=== PATIENT | male | born 1955 | race Caucasian/White ===

== ENCOUNTER 2024-04-04 07:54 | Outpatient (OUT) | payer MEDICARE, SELFPAY ==
[2024-04-04 09:22] LABS: Chol HDL Ratio 6.6; Cholesterol 211 mg/dL (<=200); HDL Cholesterol 32 mg/dL (40-60); Triglycerides 155 mg/dL (<=150)
== END 2024-04-04 07:55 | disposition home or self-care (01) ==
LOC: LAB 07:57
PROVIDERS: PCP Family Medicine; Visit Provider Internal Medicine Cardiovascular Disease
DX: I25.10 Atherosclerotic heart disease of native coronary artery without angina pectoris (principal); E78.2 Mixed hyperlipidemia
CPT/HCPCS: 36415; 80061

== ENCOUNTER 2025-04-07 07:59 | Outpatient (OUT) | payer MEDICARE, SELFPAY ==
--- OUTSIDE RECORDS SUMMARY | 2023-12-28 10:45 | XMS_ITS ---
Author Organization [facility] in [place] Address [address] [place] [address] Care Team Providers Care Logistics Planning Manager Name Role Phone Leopoldo Marinelli Primary Care Provider LEOPOLDO MARINELLILAS Unavailable [phone] Allergies Allergen (clinical drug ingredient) Drug/Non Drug Allergy documented on EMR Reaction Allergy Type Onset Date Status amoxicillin Amoxicillin anaphylaxis Drug Allergy A ctive REASON FOR VISIT plugged ears Medications Medication SIG (Take, Route, Frequency, Duration) Notes Start Date End Date Status predniSONE 20 MG 3 tablets Orally Onc e a day for 5 days 12/28/2023 Active Cetirizine HCl 10 MG 2 tablet Orally Onc e a day for 30 days 12/28/2023 Active Flonase Allergy Relief 50 MCG/ACT 1 spray in each nostril Nasally Once a day for 30 days Active Aspirin 81 81 MG 1 tablet Orally Once a day Active Metoprolol Tartrate 25 MG 1 tablet with food Orally Twice a day Active Social History Tobacco Use: Social History Observation Description Date Details (start date - stop date) Current Smoker 11/12/1967 - NA Tobacco Use/Smoking Question Answer Notes Patient is a current smoker When did you start smoking? 11/12/1967 How often do you smoke cigarettes? every day How many cigarettes a day do you smoke? 11-20 How soon after you wake up do you smoke your fir st cigarette? 6-30 minutes Are you interested in quitting? Not ready to rocky t Alcohol Screen (Audit-C) Question Answer Notes Did you have a drink containing alcohol in the p ast year? No Points 0 Interpretation Negative Vital Signs Weight 177.2 lbs 12/28/2023 Height 68 in 12/28/2023 Blood pressure systolic 122 mm Hg 12/28/19 24 Blood pressure diastolic 82 mm Hg 024 BMI 26.94 kg/m2 12/28/2023 Encounters Encounter Location Date Provider Diagnosis [facility] [address] [facility] [place] [address] 12/28/2023 SERGIO HOY Serous otitis media, unspecified chronicity, unspecified laterality H65.90 Assessments Encounter Date Diagnosis (ICD Code) Assessment Notes Treatment Notes Treatment Clinical Notes Section Notes 12/28/2023 Serous otitis media, unspecified chronicity, unspecified laterality (ICD-10 - H65.90) Plan Of Treatment Medication Medication Name Sig Start Date Stop Date Notes predniSONE 20 MG 3 tablets Orally Onc e a day for 5 days 12/28/2023 Cetirizine HCl 10 MG 2 tablet Orally Onc e a day for 30 days 12/28/2023 Flonase Allergy Relief 50 MCG/ACT 1 spray in each nostril Nasally Once a day for 30 days Progress Notes * Zacarias EVANS GDOB:07/1955 (68 yo M)Acc No.[id number]:12/28/2023 Progress Note Patient: Zacarias Chicas Provider: Yossi Marinelli M.D. :1955 A ge:68 Y S ex:Male Date:12/28/2023 Address:[address] [place], [place] [id number] Check In:02:36 PM ESTCheck O ut:03:11 PM EST Subjective: * Chief Complaints: * P lugged ears * HPI: G eneral: Dif hearing -0 just woke withit - R worse than left. * Active Problem List W54.0XXA Dog bite Modified On:11/28/2023W/U Status:confirmed * Medical History: * Surgical History: s tents 2021hernia surgery * Hospitalization/Major Diagno stic Procedure: s ee above * Family History: F ather: . M other: . B rother(s): . S ister(s): .?Daughter(s): alive. 2 daughter(s) - healthy. . * Social History: T obacco Use: T obacco Use/Smoking P roxie is a c urrent smoker W hen did you start smoking? 0 11/12/1967 H ow often do you smoke cigarettes? e very day H ow many cigarettes a day do you smoke? 1 1-20 H ow soon after you wake up do you smoke your first cigarette? 6 -30 minutes A re you interested in quitting? N ot ready to quit D rugs/Alcohol: A lcohol Screen (Audit-C) D id you have a drink containing alcohol in the past year? N o P oints 0 I nterpretation N egative * Medications: T akingAspirin 81(Aspirin) 81 MG Tablet Delayed Release 1 tablet Orally Once a dayMetoprolol Tartrate 25 MG Tablet 1 tablet with food Orally Twice a dayTaking Aspirin 81(Aspirin) 81 MG Tablet Delayed Release 1 tablet Orally Once a dayTaking Metoprolol Tartrate 25 MG Tablet 1 tablet with food Orally Twice a dayDiscontinuedCipro(Ciprofloxacin HCl) 500 MG Tablet 1 tablet Orally every 12 hrsDoxycycline Monohydrate 100 MG Capsule 1 capsule Orally BIDMedication List reviewed and reconciled with the patientDiscontinued Cipro(Ciprofloxacin HCl) 500 MG Tablet 1 tablet Orally every 12 hrsDiscontinued Doxycycline Monohydrate 100 MG Capsule 1 capsule Orally BIDMedication List reviewed and reconciled with the patient * Allergies: A moxicillin: anaphylaxis - Allergy - Criticality Highno[Allergies Verified] Objective: * Vitals: W t:177.2 lbs, Ht: 68 in, BP:122/82 mm Hg, BMI:26.94 Index, Ht-cm: 172.72 cm, Wt- k.38 kg. * Examination: A bdomen Exam:: M inimal wax in ears -. Assessment: * Assessment: 1. S erous otitis media, unspecified chronicity, unspecified laterality - H65.90 (Primary) Plan: * Treatment: * Procedure Codes: * Preventive Medicine: Screenings/Counseling: B [place] ACTION PLAN Above Normal BMI Follow-up D ietary management education, guidance, and counseling * * Sign off status: Completed Visit Status: C HK (Check Out) true * Provider: Yossi Marinelli M.D. Date: 0 12/28/2023 Generated for Mihir parker/Juan/Taraitting on: 0 04/07/2025 08:03 AM EDT History and Physical Notes * Examination Category Sub-Category Detail Notes Category Not es Abdomen Exam: Minimal wax in ears -
--- OUTSIDE RECORDS SUMMARY | 2025-04-02 10:42 | XMS_ITS ---
Author Name Auto Generated Organization [facility] Care Team Providers Care Production Mechanic Name Role Phone RENU MURPHY Attending Unavailable RENU MURPHY Referring Unavailable SERGIO MARINELLI Primary Care Unavailable PROBLEMS DATE TYPE CONDITION / CODE ATTENDING STATUS SUNIL RCE 04/02/2025 Admitting Diagnosis Bradycardia, unspecified / R00.1(ICD-10) [facility] 04/03/2024 Admitting Diagnosis Atherosclerotic heart disease of [place] coronary artery without angina pectoris / I25.10(ICD-10) [facility] 04/03/2024 Admitting Diagnosis Body mass index (BMI) 26.0-26.9, adult / Z68.26(ICD-10) [facility] 12/28/2023 Admitting Diagnosis Other specified health status / Z78.9(ICD-10) [facility] 12/28/2023 Admitting Diagnosis Old myocardial infarction / I25.2(ICD-10) [facility] 12/28/2023 Admitting Diagnosis Presence of coronary angioplasty implant and graft / Z95.5(ICD-10) [facility] 12/28/2023 Admitting Diagnosis Mixed hyperlipidemia / E78.2(ICD-10) [facility] 12/28/2023 Admitting Diagnosis Nicotine dependence, unspecified, uncomplicated / F17.200(ICD-10) [facility] 04/02/2025 Admitting Diagnosis Localized swelling, mass and lump, head / R22.0(ICD-10) [facility] PROCEDURES No Procedure Records Found RESULTS ALLERGIES DATE TYPE / CODE NAME / CODE REACTION SEVERITY SOURCE 12/28/2023 Drug Class/9741700 03(SNOMED CT) PENICILLINS Anaphylaxis [facility] 12/28/2023 DRUG INGREDI/45351 1003(SNOMED CT) ATORVASTATIN Nausea/vomit [facility] 12/28/2023 Drug Class/1556459 03(SNOMED CT) SNANORZ-NJA-FHF REDUCTASE INHIBITORS Nausea/vomit [facility] ENCOUNTERS ADMIT/DISCHARGE ACCOUNT NUMBER ADMITTING ENCOUNTER CLASS LOCATION SOURCE 04/02/2025/ 5 [id number] Ambulatory Building:[facility] [id number] Ambulatory PAYERS ENCOUNTER GUARANTOR PAYER SUBSCRIBER SOURCE 04/02/2025 NELI CLEMENTSOB: [place], [place] [address]Rct: () Primary Insurance:[employer]HEM MEDICAREPolicy Number: [id number] Date:2023-11-12 NELI CLEMENTSOB: [id number] [place], [place] [address]Iyb: () [facility]
--- OUTSIDE RECORDS SUMMARY | 2025-04-02 10:50 | XMS_ITS | Encounter Summary ---
Author Organization [facility] Address [address] [place] [address] Phone Care Team Providers Care Cementer Hand Name Role Phone Dario Barrientos MD Primary Care Provider [phone] Reason for Referral * Imaging (Routine) - Pending Review Specialty Diagnoses / Procedures Referred By Marilia dalton Referred To Contact Cardiology Diagnoses ASHD (arteriosclerotic heart disease) History of ST elevation myocardial infarction (STEMI) Status post insertion of drug eluting coronary artery stent Mass of left submandibular region Procedures Vascular US Carotid Artery Duplex Bilateral Jhony Whitlock DO [facility] [address], [address] [address] Phone: tel: fax: Referral ID Status Reason Start Date Expiration Date Visits Requested Visits Authorized [id number] Pending Review Perform Procedure 04/02/2025 04/02/2026 1 1 * Imaging (Routine) - Authorized Specialty Diagnoses / Procedures Referred By Marilia dalton Referred To Contact Radiology Diagnoses Mass of left submandibular region Procedures US neck Jhony Whitlock DO [facility] [address], [address] [address] Phone: tel: fax: Referral ID Status Reason Start Date Expiration Date Visits Requested Visits Authorized [id number] Authorized Perform Procedure 04/02/2025 04/02/2026 1 1 * Consultation (Routine) - Authorized Specialty Diagnoses / Procedures Referred By Marilia t Referred To Contact Cardiology Diagnoses ASHD (arteriosclerotic heart disease) Procedures Follow Up In Cardiology Kamlesh Jhony Librado, [facility] [address], [address] [address] Phone: tel: fax: Jhony Whitlock, [facility] [address], [address] [address] Phone: tel: fax: Referral ID Status Reason Start Date Expiration Date V isits Requested Visits Authorized [id number] Authorized 04/02/2025 04/02/2026 1 1 Reason for Visit * Reason Comments Follow-up 1yr Follow up for Co ronary Artery Disease * Consultation (Routine) - Authorized Specialty Diagnoses / Procedures Referred By Contac t Referred To Contact Cardiology Diagnoses ASHD (arteriosclerotic heart disease) Procedures Follow Up In Cardiology Kamlesh Jhony DO Libr[place] [address] [place] [address] [address], [address] [address] Phone: tel: fax: Jhony Whitlock, [address] [place] [address] [address], [address] [address] Phone: tel: fax: Referral ID Status Reason Start Date Expiration Date V isits Requested Visits Authorized [id number] Authorized 04/03/2024 04/03/2025 1 1 Encounter Details Date Type Department Care Team (Latest Contact Info) Description 04/02/2025 10:50 AM EDT Office Visit [facility] [address] [address] KamleshJhony Librado, [address] [place] [address] [address], [address] [address] ASHD (arteriosclerotic heart disease); History of ST elevation myocardial infarction (STEMI); Status post insertion of drug eluting coronary artery stent; Mixed hyperlipidemia; Statin intolerance; Bradycardia, unspecified; BMI 26.0-26.9,adult; Current smoker; Mass of left submandibular region Social History Tobacco Use Types Packs/Day Years Used Date Smoking Tobacco: Every Day Cigarettes Smokeless Tobacco: Never Tobacco Cessation:Ready to Q uit: No; Counseling Given: Yes Alcohol Use Standard Drinks/Week Comments Yes 0 (1 standard drink = 0.6 oz pur e alcohol) social Sex and Gender Information Value Date Recorded Sex Assigned at Not on file Legal Sex Male 2:33 PM EST Gender Identity Not on file Sexual Orientation Not on file COVID-19 Exposure Response Date Recorded In the last 10 days, have yo u been in contact with someone who was confirmed or suspected to have Coronavirus/COVID-19? No / Unsure 04/02/2025 10:41 AM EDT documented as of this encounter Last Filed Vital Signs Vital Sign Reading Time Taken Comments Blood Pressure 132/74 04/02/2025 11:35 AM EDT Pulse 48 04/02/2025 11:35 AM EDT Temperature - - Respiratory Rate - - Oxygen Saturation - - Inhaled Oxygen Concentration - - Weight 78 kg (172 lb) 04/02/2025 11:35 AM EDT Height 172.7 cm (5' 8 ) 04/02/2025 11:35 AM EDT Body Mass Index 26.15 04/02/2025 11:35 AM EDT documented in this encounter Patient Instructions * Patient Instructions* Elaina Lee LPN - 04/02/2025 10:50 AM EDT Please bring all medicines, vitamins, and herbal supplements with you when you come to the office. Prescriptions will not be filled unless you are compliant with your follow up appointments or have a follow up appointment scheduled as per instruction of your physician. Refills should be requested at the time of your visit. documented in this encounter Progress Notes * Jhony Whitlock DO - 04/02/2025 10:50 AM EDT Chief Complaint Patient presents with Follow-up 1yr Follow up for Coronary Artery Disease Subjective Zacarias Evans is a 70 y.o. male 70-year-old gentleman returns for annual follow-up and is doing well from a cardiovascular standpoint, he denies any cardiovascular events, angina, nitrate usage or hospitalizations. He still smoking2 packs a day we have taken 5 to 10 minutes to drug counselor him on smoking cessation and offered alternatives and pharmacologic interventions. On exam today, he has noted to have a left submandibular mass on palpation and I believe he may have a enlarged right thyroid lobe on my palpation and no obvious bruits on exam He denies any neurologic events or swallowing problems. He denies heart failure or angina He has a history of ASHD with [place] status post inferoposterior STEMI in November 2021 with primary revascularization of the circumflex. He has underlying hyperlipidemia, hypertension and tobacco use and he is intolerant to statins. He did not follow-up with lipid testing last year. Recommendations: Obtain ultrasound of the neck and carotid duplex; lipid panel, smoking cessation counseling, follow-up in 1 year, notify family physician of left submandibular neck mass Review of Systems All other systems reviewed and are negative. Vitals: 04/02/25 1135 BP: 132/74 BP Location: Right arm Patient Position: Sitting Pulse: (!) 48 Weight: 78 kg (172 lb) Height: 1.727 m (5' 8 ) Objective Physical Exam Constitutional: Appearance: Normal appearance. HENT: Nose: Nose normal. Neck: Vascular: No carotid bruit. Cardiovascular: Rate and Rhythm: Bradycardia present. Pulses: Normal pulses. Heart sounds: Normal heart sounds. Pulmonary: Effort: Pulmonary effort is normal. Abdominal: General: Bowel sounds are normal. Palpations: Abdomen is soft. Musculoskeletal: General: Normal range of motion. Cervical back: Normal range of motion. Right lower leg: No edema. Left lower leg: No edema. Skin: General: Skin is warm and dry. Neurological: General: No focal deficit present. Mental Status: He is alert. Psychiatric: Mood and Affect: Mood normal. Behavior: Behavior normal. Thought Content: Thought content normal. Judgment: Judgment normal. Allergies Penicillins, Atorvastatin, and Whpihnd-pvp-hrd reductase inhibitors Current Medications Current Outpatient Medications Medication Instructions aspirin 81 mg, oral, Daily fluticasone propionat,microniz (FLUTICASONE PROP, MICRO, BULK, MISC) 1 puff, As needed metoprolol tartrate (LOPRESSOR) 25 mg, oral, 2 times daily nitroglycerin (NITROSTAT) 0.4 mg, Every 5 min PRN Assessment/Plan 1. ASHD (arteriosclerotic heart disease) Follow Up In Cardiology 2. History of ST elevation myocardial infarction (STEMI) 3. Status post insertion of drug eluting coronary artery stent 4. Mixed hyperlipidemia 5. Statin intolerance 6. Bradycardia, unspecified 7. BMI 26.0-26.9,adult 8. Current smoker Scribe Attestation By signing my name below, Nati Sharmila Henok JOHN , Scribe attest that this documentation has been prepared under the direction and in the presence of Ramesh Whitlock DO. Provider Attestation - Scribe documentation All medical record entries made by the Scribe were at my direction and personally dictated by me. Ihave reviewed the chart and agree that the record accurately reflects my personal performance of the history, physical exam, discussion and plan. documented in this encounter Plan of Treatment Upcoming Encounters Date Type Department Care Team (Late st Contact Info) Description 03/31/2026 10:00 AM EDT Office Visit [facility] [address] [address] Jhony Whitlock DO [facility] [place], [place] [id number] Scheduled Orders Name Type Priority Associated Diagnoses Orde r Schedule Aspartate Aminotransferase Lab Routine Mixed hyperlipidemia Expected: 04/02/2025 (Approximate), Expires: 04/02/2026 Alanine Aminotransferase Lab Routine Mixed hyperlipidemia Expected: 04/02/2025 (Approximate), Expires: 04/02/2026 Lipid Panel Lab Routine Mixed hyperlipidemia Expected: 04/02/2025 (Approximate), Expires: 04/02/2026 Basic Metabolic Panel Lab Routine ASHD (arteriosclerotic heart disease) History of ST elevation myocardial infarction (STEMI) Bradycardia, unspecified Expected: 04/02/2025 (Approximate), Expires: 04/02/2026 US neck Imaging Routine Mass of left submandibular region Expected: 04/02/2025 (Approximate), Expires: 04/02/2026 Vascular US Carotid Artery Duplex Bilateral Vascular Ultrasound Routine ASHD (arteriosclerotic heart disease) History of ST elevation myocardial infarction (STEMI) Status post insertion of drug eluting coronary artery stent Mass of left submandibular region Expected: 04/02/2025 (Approximate), Expires: 04/02/2027 documented as of this encounter Visit Diagnoses Diagnosis ASHD (arteriosclerotic heart disease) Coronary atherosclerosis of unspecified type of vessel, [place] or graft History of ST elevation myocardial infarction (STEMI) Status post insertion of drug eluting coronary artery stent Mixed hyperlipidemia Statin intolerance Bradycardia, unspecified BMI 26.0-26.9,adult Current smoker Mass of left submandibular region documented in this encounter Additional Health Concerns Assessment Noted Time A fall risk assessment has been complete d for the patient 04/02/2025 11:35 AM EDT documented as of this encounter Care Teams Cementer Hand Relationship Specialty Start Date End Date Dario Barrientos MD [address] [place] [id number] PCP - General 12/14/21 documented as of this encounter
--- OUTSIDE RECORDS SUMMARY | 2025-04-03 07:30 | XMS_ITS ---
Author Organization [facility] in [place] Address [address] [place] [address] Care Team Providers Care Thermo Cementing Folder Operator Name Role Phone Gael Barrientos Primary Care Provider Allergies Allergen (clinical drug ingredient) Drug/Non Drug Allergy documented on EMR Reaction Allergy Type Onset Date Status amoxicillin Amoxicillin anaphylaxis Drug Allergy A ctive REASON FOR VISIT Presents to office with for Wellness, Seen Dr. Deng yesterday and told has a mass on left side of neck Medications Medication SIG (Take, Route, Frequency, Duration) Notes Start Date End Date Status Aspirin 81 81 MG 1 tablet Orally Once a day Active Metoprolol Succinate ER 25 MG 1 tablet Orally Once a day A ctive Social History Tobacco Use: Social History Observation [...] in quitting? Not ready to rocky t AUDIT-C (Standard) Question Answer Notes Did you have a drink contain ing alcohol in the past year? Yes How often did you have a dri nk containing alcohol in the past year? Never (0 point) How many drinks did you have on a typical day when you were drinking in the past year? 1 or 2 drinks (0 point) How often did you have six o r more drinks on one occasion in the past year? 2 to 4 times a month (2 points) Points 2 Interpretation Negative Problems Problem Type SNOMED Code ICD Code Onset Dates Problem Status W/U Status Risk Notes Problem Hypertension (80333700) Hypertension (I10) Active confirmed Problem CAD (coronary artery disease) (I25.10) Active confirmed Vital Signs Weight 172.4 lbs 04/03/2025 Height 68 in 04/03/2025 Blood pressure systolic 160 mm Hg 04/03/20 25 Blood pressure diastolic 72 mm Hg 025 BMI 26.21 kg/m2 04/03/2025 Procedures Procedure Date Ordered Date Performed Result Body Sit e VASC US CAROTID ARTERY DUPLEX BILATERAL 04/03/2025 N/A Encounters Encounter Location Date Provider Diagnosis [facility] [address] [place] [address] 04/03/2025 Gael Hoy Neck mass R22.1 ; Hypertension I10 and CAD (coronary artery disease) I25.10 Assessments Encounter Date Diagnosis (ICD Code) Assessment Notes Treatment Notes Treatment Clinical Notes Section Notes 04/03/2025 Neck mass (ICD-10 - R22.1) 04/03/2025 Hypertension (ICD-10 - I10) 04/03/2025 CAD (coronary artery disease) (ICD-10 - I25.10) Plan Of Treatment Pending Test Test Name Order Date HEMOGLOBIN A1C (GLYCO) 04/03/2025 LIPID PANEL (CHOL/TRIG/HDL/LDL) 04/03/20 25 THYROID PANEL (T4/TSH/FREE T3) PSA, SCREENING 04/03/2025 US soft tissue head and neck 04/03/2025 CT CHEST LOW DOSE (LDCT) 04/03/2025 VASC US CAROTID ARTERY DUPLEX BILATERAL 04/03/2025 CMP (COMP MET GRIFFITH) w/eGFR CKD-EPI 2024 CBC WITH DIFF 04/03/2025 Progress Notes * Zacarias EVANS GDOB:07/1955 (70 yo M)Acc No.[id number]:04/03/2025 UNLOCKED PROGRESS NOTE Progress Note Patient: Zacarias BLANKENSHIP Provider: Yossi Barrientos (SYBIL)MD :1955 A ge:70 Y S ex:Male Date:04/03/2025 Address:[address] [place] [address] [place], [id number] Check In:11:20 AM ESTCheck O ut:12:14 PM EST Subjective: * Chief Complaints: * 1 . Presents to office with for Wellness. 2. Seen Dr. Deng yesterday and told has a mass on left side of neck. * HPI: G eneral: Disucssed hypertensio neck mass. * ROS: E ENT: hearing changes d enies. v isual changes d enies.?non-healing mouth sores d enies. s wollen glands or neck lumps d enies. h oarseness d enies. s ore throat d enies. d ifficulty swallowing d enies. n ose bleeds d enies. n nazanin congestion d enies. e ar ache d enies. e ar discharge?denies. r inging in ears d enies. l ight sensitivity d enies. e ye pain d enies. b lurring d enies. e ye irritation d enies. d ouble vision d enies.?vision loss d enies. G eneral/Constitutional: Sweats: D enies. F atigue d enies. S leep problems d enies. A norexia d enies. M alaise d enies. W eight loss d enies.?Fatigue or Weakness d enies. F ever or Chills d enies. C ardiovascular: Shortness of Breath w/lying flat d enies. L ightheadedness/dizziness d enies. C hest tightness/ heavy pressure d enies. S welling of legs, ankles, or feet d enies. W aking up with shortness of breath d enies. C hest pain denies. P alpitations d enies. W eight gain d enies. R espiratory: Chronic or frequent cough d enies. C oughing up blood?denies. D ifficulty breathing d enies. P roductive cough d enies. S noring?denies. S hortness of breath that awakens from sleep (PND) d enies. C hest pain d enies. S putum production d enies. W heezing d enies. M usculoskeletal: Joint pain d enies. J oint Fluid d enies. B ack pain d enies. K nee pain d enies. N walter pain d enies. J oint Stiffness d enies. M uscle cramps d enies. W eakness of muscles d enies. A rthritis d enies. M uscle aches d enies. P ain in shoulder(s) d enies. S wollen joints d enies. * Medical History: M I, old. * Surgical History: s tents 2021, hernia surgery . * Hospitalization/Major Diagno stic Procedure: s ee above . * Family History: F ather: . M other: . B rother(s): . S ister(s): .?Daughter(s): alive. 2 daughter(s) - healthy. . * Social History: T obacco Use: T obacco Use/Smoking P atient is a c urrent smoker W hen did you start smoking? 0 11/12/1967 H ow often do you smoke cigarettes? e very day H ow many cigarettes a day do you smoke? 1 1-20 H ow soon after you wake up do you smoke your first cigarette? 6 -30 minutes A re you interested in quitting? N ot ready to quit D rug/Alcohol: A LUCIO-C (Standard) D id you have a drink containing alcohol in the past year? Y es H ow often did you have a drink containing alcohol in the past year? N ever (0 point) H ow many drinks did you have on a typical day when you were drinking in the past year? 1 or 2 drinks (0 point) H ow often did you have six or more drinks on one occasion in the past year? 2 to 4 times a month (2 points) P oints 2 I nterpretation N egative * Medications: T aking Aspirin 81(Aspirin) 81 MG Tablet Delayed Release 1 tablet Orally Once a day , Taking Metoprolol Succinate ER 25 MG Tablet Extended Release 24 Hour 1 tablet Orally Once a day , Discontinued Cetirizine HCl 10 MG Tablet 2 tablet Orally Once a day , Discontinued Flonase Allergy Relief(Fluticasone Propionate) 50 MCG/ACT Suspension 1 spray in each nostril Nasally Once a day , Discontinued Metoprolol Tartrate 25 MG Tablet 1 tablet with food Orally Twice a day , Discontinued predniSONE 20 MG Tablet 3 tablets Orally Once a day , Medication List reviewed and reconciled with the patient * Allergies: A moxicillin: anaphylaxis - Allergy - Criticality High. Objective: * Vitals: W t:172.4lbs, Ht: 68 in, BP:160/72mm Hg, BMI:26.21Index, Ht-cm: 172.72 cm, Wt-k.2 kg. * Examination: P hysical Exam: GENERAL: w ell developed, well nourished, in no acute distress. HEAD: n ormocephalic/atraumatic. EYES: p upils equal, round and reactive to light, conjunctivae and sclerae normal. EARS: n o deformity or lesion of external ear, canals and TM appear normal bilaterally, TM's intact, not inflamed with normal light reflex, hearing grossly normal to conversational speech. NOSE: n o deformity, discharge, inflammation, or lesions.? MOUTH: m ucous membranes moist, normal oropharynx and posterior pharynx without lesions or exudates, tongue normal, dentition normal. NECK: n walter supple, no masses or palpable cervical nodes, trachea midline, thyroid without nodules, masses, tenderness, or enlargement. CHEST: n o chest wall deformity, no chest wall tenderness.? LUNGS: n ormal respiratory effort and clear to auscultation, no wheezes, rales, or rhonchi, good air exchange. CARDIO: r egular rate and rhythm, normal S1 and S2, nor murmur, rub, or gallop. PULSES: n ormal capillary refill. ABDOMEN: s oft, non-distended, non-tender, no masses. MUSCULOSKELETAL: n o deformity or scoliosis noted, normal range of motion, joints normal, no erythema, edema, effusion, or ecchymosis. EXTREMITY: n o clubbing, cyanosis, edema, or deformity with normal ROM in both upper and lower bilateral extremities. NEUROLOGIC: g rossly normal. SKIN: n o rashes, ulcerations, or suspicious lesions. LYMPH NODES: n o cervical adenopathy, nodes normal. MENTAL STATUS: a lert and oriented x3, normal mood and affect. Assessment: * Assessment: 1. N walter mass - R22.1 (Primary) 2 . H ypertension - I10 3 .?CAD (coronary artery disease) - I25.10 Plan: * Treatment: ?Imaging: CT CHEST LOW DOSE (LDCT)* Neclk mass and smoker ?Procedure: VASC US CAROTID ARTERY DUPLEX BILATERAL* copy to dr deng 2.?Hypertension?LAB: HEMOGLOBIN A1C (GLYCO) ?LAB: LIPID PANEL (CHOL/TRIG/HDL/LDL) ?LAB: THYROID PANEL (T4/TSH/FREE T3) ?LAB: PSA, SCREENING ?LAB: CMP (COMP MET GRIFFITH) w/eGFR CKD-EPI ?LAB: CBC WITH DIFF3.?CAD (coronary artery disease)?LAB: HEMOGLOBIN A1C (GLYCO) ?LAB: LIPID PANEL (CHOL/TRIG/HDL/LDL) ?LAB: THYROID PANEL (T4/TSH/FREE T3) ?LAB: PSA, SCREENING ?LAB: CMP (COMP MET GRIFFITH) w/eGFR CKD-EPI ?LAB: CBC WITH DIFF * Preventive Medicine: Screenings/Counseling: B NM ACTION PLAN Above Normal BMI Follow-up D ietary management education, guidance, and counseling See treatment section of progress note for complete details of management plan. F ALL RISK SCREENING Fall Risk Assessment: N o falls in the past year * * Electronic signature of Gael Barrientos MD, [id number] on 04/07/2025 at 08:03 AM EDT Sign off status: Pending Visit Status: C HK (Check Out) * Provider: Yossi Barrientos (TTC)MD Date: 0 04/03/2025 Generated for Printi ng/Faxing/eTransmitting on: 0 04/07/2025 08:03 AM EDT History and Physical Notes * HPI (History of Present Illness) Category Sub-Category Detail Notes Category Not es General Disucssed hypertensio neck mass Examination Category Sub-Category Detail Notes Category Not es Physical Exam GENERAL: well developed, well nourished, in no acute distress HEAD: normocephalic/atraum atic EYES: pupils equal, round and reactive to light, conjunctivae and sclerae normal EARS: no deformity or lesi on of external ear, canals and TM appear normal bilaterally, TM's intact, not inflamed with normal light reflex, hearing grossly normal to conversational speech NOSE: no deformity, discha rge, inflammation, or lesions MOUTH: mucous membranes nick st, normal oropharynx and posterior pharynx without lesions or exudates, tongue normal, dentition normal NECK: neck supple, no mass es or palpable cervical nodes, trachea midline, thyroid without nodules, masses, tenderness, or enlargement CHEST: no chest wall deform ity, no chest wall tenderness LUNGS: normal respiratory e ffort and clear to auscultation, no wheezes, rales, or rhonchi, good air exchange CARDIO: regular rate and rhy thm, normal S1 and S2, nor murmur, rub, or gallop PULSES: normal capillary ref ill ABDOMEN: soft, non-distended, non-tender, no masses RECTAL: MUSCULOSKELETAL: no deformity or scol iosis noted, normal range of motion, joints normal, no erythema, edema, effusion, or ecchymosis EXTREMITY: no clubbing, cyanosi s, edema, or deformity with normal ROM in both upper and lower bilateral extremities NEUROLOGIC: grossly normal SKIN: no rashes, ulceratio ns, or suspicious lesions LYMPH NODES: no cervical adenopat hy, nodes normal MENTAL STATUS: alert and oriented x 3, normal mood and affect
--- OUTSIDE RECORDS SUMMARY | 2025-04-07 08:03 | XMS_ITS | Patient Health Record ---
Author Organization [facility] [place] Address [address] [place] [address] Care Team Providers Care Numerical Control Programmer Name Role Phone Gael Barrientos Primary Care Provider Allergies Allergen (clinical drug ingredient) Drug/Non Drug Allergy documented on EMR Reaction Allergy Type Onset Date Status amoxicillin Amoxicillin anaphylaxis Drug Allergy A ctive Reason For Referral No Information Medications Medication SIG (Take, Route, Frequency, Duration) [...] ast year? No Points 0 Interpretation Negative AUDIT-C (Standard) Question Answer Notes Did you [...] Status W/U Status Risk Notes Problem Hypertension (45666554) Hypertension (I10) Active confirmed Problem Coronary artery disease (81121894) CAD (coronary artery disease) (I25.10) Active confirmed Problem Dog bite (W54.0XXA) Active confirmed Problem Tobacco use and exposure (827902063) Current tobacco use (Z72.0) Active confirmed Vital Signs Blood pressure diastolic 72 mm Hg 04/03/2025 Height 68 in 04/03/2025 Blood pressure systolic 160 mm Hg 04/03/2025 Weight 172.4 lbs 04/03/2025 BMI 26.21 kg/m2 04/03/2025 Procedures Procedure Date Ordered Date Performed Result Body Sit e VASC US CAROTID ARTERY DUPLEX BILATERAL 04/03/2025 N/A Encounters Encounter Location Date Provider Diagnosis [facility] ([place], [place] Medicine [address] [place] [address] 04/03/2025 Gael Hoy Neck mass R22.1 ; Hypertension I10 and CAD (coronary artery disease) I25.10 Assessments Encounter Date Diagnosis (ICD Code) Assessment Notes Treatment Notes Treatment Clinical Notes Section Notes 04/03/2025 Hypertension (ICD-10 - I10) 04/03/2025 Neck mass (ICD-10 - R22.1) 04/03/2025 CAD (coronary artery disease) (ICD-10 - [...] w/eGFR CKD-EPI 2024 CBC WITH DIFF 04/03/2025 Insurance Providers Payer Name Payer Address Payer Phone Subscriber Number Group Number Insured Name Patient Relationship to Insured Coverage Start Date Coverage End Date [employer] ADV PLAN [address] [place] [address] [id number] Zacarias Cordero Self - patient is the insured 4 Medical (General) History Medical History History ICD Code RI, old I25.2 Surgical History Surgery Date(Month/Year) stents 2021 hernia surgery Hospitalization History Reason Date(Month/Year) see above
--- OUTSIDE RECORDS SUMMARY | 2025-04-07 08:03 | XMS_ITS | Clinical Summary ---
Author Organization [facility] Address [address] [place] [address] Phone Care Team Providers Care High School Math Teacher Name Role Phone Dario Barrientos MD Primary Care Provider [phone] Allergies Active Allergy Reactions Criticality Noted Date Comments Atorvastatin Nausea/vomiting Medium 12/28/2023 Penicillins Anaphylaxis High 12/28/2023 Uctfyfg-Feq-Ren Reductase Inhibitors Nausea/vomiting Mediu m 12/28/2023 Medications nitroglycerin (Nitrostat) 0.[address] 1 tablet (0.4 mg) under the tongue every 5 minutes if needed. Active fluticasone propionat,micron iz (FLUTICASONE PROP, MICRO, BULK, MISC) 1 puff if needed. Active aspirin 81 mg EC tabletIndication s:History of ST elevation myocardial infarction (STEMI) TAKE 1 TABLET BY MOUTH EVERY DAY 90 tablet 3 4 Active metoprolol succinate XL (Toprol-XL) 25 mg 24 hr tabletIndication s:History of ST elevation myocardial infarction (STEMI),Bradycar rodolfo, unspecified Take 1 tablet (25 mg) by mouth once daily. Do not crush or chew. 90 tablet 3 5 04/02/20 26 Active aspirin 81 mg chewable tablet Chew 1 tablet (81 mg) once daily. 04/02/20 25 Discontinu ed(Duplica te order) cetirizine (ZyrTEC) 10 mg capsule Take 1 capsule (10 mg) by mouth 2 times a day. 04/02/20 25 Discontinu ed(Therapy completed) metoprolol tartrate (Lopressor) 25 mg tabletIndication s:ASHD (arterioscleroti c heart disease),Status post insertion of drug eluting coronary artery stent Take 1 tablet (25 mg) by mouth 2 times a day. 180 tablet 3 4 04/02/20 25 Discontinu ed(Therapy completed) Active Problems Problem Noted Date Diagnosed Date Bradycardia, unspecified 04/02/2025 BMI 26.0-26.9,adult 04/03/2024 ASHD (arteriosclerotic heart disease) 12/28/[address] elevation myocardial infarction (S ISIDRO) 12/28/2023 Mixed hyperlipidemia 12/28/2023 Status post insertion of drug eluting coronary a rtery stent 12/28/2023 Current smoker 12/28/2023 Statin intolerance 12/28/2023 Encounters Date Type Department Care Team Description 04/02/2025 10:50 AM EDT Office Visit [facility] [address] [address] Jhony Whitlock DO ASHD (arteriosclerotic heart disease); History of ST elevation myocardial infarction (STEMI); Status post insertion of drug eluting coronary artery stent; Mixed hyperlipidemia; Statin intolerance; Bradycardia, unspecified; BMI 26.0-26.9,adult; Current smoker; Mass of left submandibular region 04/02/2025 Travel from Last 3 Months Family History Medical History Relation Name Comments malignant neoplasm Father malignant neoplasm Mother Relation Name Status Comments Father Mother Social History Tobacco Use Types Packs/Day Years [...] No / Unsure 04/02/2025 10:41 AM EDT Last Filed Vital Signs Vital Sign Reading [...] Mass Index 26.15 04/02/2025 11:35 AM EDT Plan of Treatment Upcoming Encounters Date Type Department Care Team (Late st Contact Info) Description 03/31/2026 10:00 AM EDT Office Visit [facility] [address] [facility] [address] [place] [address] Jhony Whitlock, [address] [facility] [address] [place] [address] Health Maintenance Due Date Last Done Comments CT Colonography 1955 Colonoscopy 1955 Colorectal Cancer Screening 1955 FIT-DNA (Cologuard) 1955 FIT 1955 Lipid Panel 1955 Medicare Annual Wellness Vis it (AWV) 1955 Sigmoidoscopy 1955 Diabetes Screening 1974 Hepatitis C Screening 1974 DTaP/Tdap/Td Vaccines (1 - Tdap) 1978 Zoster Vaccines (1 of 2) 2006 RSV High Risk: (Elderly (60+ ) or Population) (1 - Risk 60-74 years 1-dose series) 2016 Abdominal Aortic Aneurysm (A AA) Screening 2021 Pneumococcal Vaccine (2 of 2 - PCV) 09/03/2021 09/03/2020 COVID-19 Vaccine (1 - 2023-2 5 season) 2024 Influenza Vaccine (Season Ended) 2025 HIB Vaccines Aged Out No longer eligi ble based on patient's age to complete this topic HPV Vaccines Aged Out No longer eligi ble based on patient's age to complete this topic Hepatitis A Vaccines Aged Out No long er eligible based on patient's age to complete this topic Hepatitis B Vaccines Aged Out No long er eligible based on patient's age to complete this topic IPV Vaccines Aged Out No longer eligi ble based on patient's age to complete this topic Meningococcal Vaccine Aged Out No eder nguyễn eligible based on patient's age to complete this topic Rotavirus Vaccines Aged Out No longer eligible based on patient's age to complete this topic Insurance [employer]M MEDICARE ADVANTAGE AN[employer]M MED[employer]ARE ADVANTAGE Care Teams High School Math Teacher Relationship Specialty Start Date End Date Dario Barrientos MD [address] [id number] PCP - General 12/14/21
--- OUTSIDE RECORDS SUMMARY | 2025-04-07 08:04 | XMS_ITS | Encounter Summary ---
Author Organization [facility] Address [address] [place] [address] Phone Care Team Providers Care Director Of Labor Relations Name Role Phone Dario Barrientos MD Primary Care Provider [phone] Encounter Details Date Type Department Care Team (Latest Contact Info) Description 04/02/2025 Travel Social History Tobacco Use Types Packs/Day Years Used Date Smoking Tobacco: Every Day Cigarettes Smokeless Tobacco: Never Alcohol Use Standard Drinks/Week Comments Yes 0 [...] AM EDT documented as of this encounter Plan of Treatment Upcoming Encounters Date Type Department Care Team (Late st Contact Info) Description 03/31/2026 10:00 AM EDT Office Visit [facility] [address] [facility] [address] [place] [address] Jhony Whitlock DO [address] [facility] [address] [place] [address] documented as of this encounter Visit Diagnoses Not on filedocumented in this encounter Additional Health Concerns Assessment Noted Time A fall risk assessment has been complete d for the patient 04/02/2025 11:35 AM EDT documented as of this encounter Care Teams Director Of Labor Relations Relationship Specialty Start Date End Date Dario Barrientos MD [address] [place] [address] PCP - General 12/14/21 documented as of this encounter
[2025-04-07 08:35] LABS: Basophils Absolute Auto 0.1 10^3/uL (0.0-0.1); Basophils Percent Auto 0.5 % (0.2-2.0); Eosinophils Absolute Auto 0.1 10^3/uL (0.0-0.7); Eosinophils Percent Auto 1.3 % (0.9-7.0); Hematocrit 44.4 % (42.0-54.0); Hemoglobin 14.9 g/dL (14.0-18.0); Immature Granulocytes Abs Auto 0.05 10^3/uL (0.00-0.03); Immature Granulocytes Pct Auto 0.5 % (0.0-0.5); Lymphocytes Absolute Auto 2.2 10^3/uL (1.2-3.8); Lymphocytes Percent Auto 22.1 % (20.5-60.0); Mean Corpuscular HGB Conc 33.6 g/dL (29.9-35.2); Mean Corpuscular Hemoglobin 29.5 pg (25.9-34.0); Mean Corpuscular Volume 87.9 fL (80.0-94.0); Mean Platelet Volume 9.6 fL (9.5-13.5); Monocytes Absolute Auto 0.9 10^3/uL (0.3-0.8); Neutrophils Absolute Auto 6.6 10^3/uL (1.4-6.5); Neutrophils Percent Auto 66.6 % (43.0-75.0); Platelet Count 204 10^3/uL (150-450); Red Blood Count 5.05 10^6/uL (4.70-6.10); Red Cell Distribution Width 13.8 % (11.0-15.0); White Blood Count 9.8 10^3/uL (4.0-11.0)
[2025-04-07 09:07] LABS: Estimated Average Glucose 128 mg/dL; Glycohemoglobin A1C 6.1 % (4.5-6.2)
[2025-04-07 09:27] LABS: Alanine Aminotransferase 21 U/L (16-63); Albumin Globulin Ratio 0.9; Albumin Level 3.6 g/dL (3.4-5.0); Alkaline Phosphatase 80 U/L (46-116); Anion Gap 13.6; Aspartate Amino Transferase 14 U/L (15-37); BUN Creatinine Ratio 20.6; Bilirubin Total 0.6 mg/dL (0.2-1.0); Carbon Dioxide 28.6 mmol/L (21.0-32.0); Chloride 103 mmol/L (98-107); Chol HDL Ratio 5.6; Cholesterol 207 mg/dL (<=200); Estimated GFR (African America >60 (>=60 mL/min/1.73m^2); Estimated GFR (Non-African Ame >60 (>=60 mL/min/1.73m^2); Globulin 3.8 g/dL; Glucose 106 mg/dL (74-106); HDL Cholesterol 37 mg/dL (40-60); Potassium 4.2 mmol/L (3.5-5.1); Sodium 141 mmol/L (136-145); Thyroid Stimulating Hormone 1.046 uIU/mL (0.358-3.740); Total Protein 7.4 g/dL (6.4-8.2); Triglycerides 149 mg/dL (<=150); VLDL CHOLESTEROL 29.8 mg/dL
[2025-04-07 10:12] LABS: Prostate Specific Antigen Scrn 1.11 ng/mL (<=4.00)
== END 2025-04-07 08:00 | disposition home or self-care (01) ==
LOC: LAB 08:02
PROVIDERS: PCP Family Medicine; Visit Provider Family Medicine
DX: R22.1 Localized swelling, mass and lump, neck (principal); I10 Essential (primary) hypertension; I25.10 Atherosclerotic heart disease of native coronary artery without angina pectoris; E78.5 Hyperlipidemia, unspecified; R73.09 Other abnormal glucose; E03.9 Hypothyroidism, unspecified; Z12.5 Encounter for screening for malignant neoplasm of prostate; D50.9 Iron deficiency anemia, unspecified
CPT/HCPCS: 36415; 80053; 80061; 83036; 84436; 84443; 84481; 85025; G0103

== ENCOUNTER 2025-04-10 09:55 | Outpatient (OUT) | payer MEDICARE, SELFPAY ==
--- NOTE | 2025-04-10 10:00 | CT_ITS ---
The [address] [address] Patient Name: NELI CEDILLO MRN: [id number] date: 1955 Sex: M Assigned Patient Location: CT Current Patient Location: LAB Accession/Order Number: [id number] Exam Date: 04/10/2025 10:47 Report Date: 04/10/2025 10:57 At the request of: SERGIO MARINLELI MD Procedure: CT lung screening low-dose LOW-DOSE SCREENING CHEST CT WITHOUT CONTRAST CLINICAL DATA: Current smoker with 60 pack year history of tobacco use COMPARISON: None Spiral axial unenhanced low-dose images were obtained through the chest. Images were reviewed using both narrow and wide window settings. This CT exam was performed using one or more following dose reduction techniques: Automated exposure control, adjustment of the mA and/or kV according to patient size, or use of iterative reconstruction technique. The heart is within normal limits for size. No pericardial effusion is seen. Coronary artery disease is visualized. There is no aortic aneurysm. There is minor plaque at the aortic arch and descending aorta. There are small scattered mediastinal lymph nodes. Benign-appearing axillary lymph nodes are seen. There is minor gynecomastia. There are tiny endplate spurs. There is minor scarring at the lung apices. There are some airspace lucencies and a few subpleural blebs. There is linear atelectasis and/or scarring of the lower lobes. No additional consolidation, pleural effusion or pneumothorax is identified. There is a 5 mm groundglass nodular density within the right lower lobe (axial image 111). No other nodularity is seen. Limited cuts through the upper abdomen show no contributory findings. CT/CT lung screening low-dose IMPRESSION: OBSTRUCTIVE LUNG DISEASE WITH MINOR SCARRING AND POSSIBLE ATELECTASIS. TINY RIGHT LOWER LOBE NODULE. Lung RADS category 2 - benign Twelve-month low-dose CT follow-up suggested Impression dictated by: Samantha Fontana M.D. 04/10/2025 10:57 AM Dictation Location: [place] [address] Electronically authenticated by: [id number] Date: 04/10/2025 10:57
--- OUTSIDE RECORDS SUMMARY | 2025-04-10 10:11 | XMS_ITS | CCD ---
Author Organization [facility] Care Team Providers Care Lab[address] Name Role Phone Sergio Barrientos Unavailable Unavailable Unavailable Kamlesh, Dr. Renu Choi Attending Unava ilable Sergio Barrientos Primary Care Unavailable Kamlesh, Dr. Renu Choi Attending Unava ilable Sergio Barrientos Primary Care Unavailable Kamlesh, Dr. Renu Choi Attending Unava ilable Sergio Barrientos Primary Care Unavailable Sergio Barrientos Primary Care Unavailable Kamlesh, Dr. Renu Choi Referring Unava ROSA MARIA Witt Attending Unavailable Sergio Barrientos Primary Care Unavailable Kamlesh, Dr. Renu Choi Attending Unava isrrael Schmidt, [employer] Qamar Referring Unavailable Sergio Barrientos Primary Care Unavailable Kamlesh, Dr. Renu Choi Referring Unava Sergio Castellano Primary Care Unavailable Kamlesh, Dr. Renu Choi Attending Unava gurdeepable KAMLESH, DR RENU Pavon Admitting Unavailessence WHITLOCK, DR RENU Pavon Attending Unavailabl savage BARRIENTOS, DR HILL Primary Care Unavailable KAMLESH, DR RENU Pavon Consulting Unavailessence BARRIENTOS, DR HILL Primary Care Unavailable RANDALL COTTON Admitting Unavailable RANDALL COTTON Attending Unavailable DR VIRGINIA ALFARO V Consulting Unavailable RANDALL COTTON Consulting Unavailable SANDRA, DR COOK Admitting Unavailable SANDRA, DR COOK Attending Unavailable DR SERGIO BARRIENTOS Primary Care Unavailable SANDRA, DR COOK Consulting Unavailable DR SERGIO BARRIENTOS Admitting Unavailable ILIANA, DR HILL Attending Unavailable DR SERGIO BARRIENTOS Primary Care Unavailable DR SERGIO BARRIENTOS Consulting Unavailable QAMAR MURPHY Admitting Unavailable QAMAR MURPHY Attending Unavailable DR SERGIO BARRIENTOS Primary Care Unavailable QAMAR MURPHY Consulting Unavailable Sergio Barrientos Primary Care Unavailable Agustin Whitlock Attending Unavailable Agustin Whitlock Admitting Unavailable Sergio Barrientos MD Primary Care Provider RENU WHITLOCK Attending Unavailable RENU WHITLOCK Referring Unavailable SERGIO BARRIENTOS Primary Care Unavailable Allergies Allergy Classification Reported Allergen(s) Allergy Type Date of Onset Reaction(s) Facility (7 sources) atorvastatin; Translations: [atorvastatin] Drug Allergy 4 Nausea/vomiting [facility] (6 sources) Penicillins; Translations: [Penicillins] Allergy to drug (finding) 4 Anaphylaxis, Other Hospitals 3 Repository (4 sources) Hmg-Coa Reductase Inhibitors (Statins); Translations: [Statins] Allergy to drug (finding) Vomiting [facility] y 250 DO Work Phone: (1 source) Penicillins Drug allergy (disorder) 7 [facility] Repository (1 source) Penicillins Drug allergy (disorder) 2 [facility] Repository (2 sources) HMG-CoA reductase inhibitor; Translations: [RJMDYZA-NTE-OL A REDUCTASE INHIBITORS] Drug Intolerance 4 Nausea/vomiting [facility] Work Phone: (1 source) Penicillins Drug Intolerance 4 Anaphylaxis [facility] Work Phone: Medications Current Medications Medication Drug Class(es) Dates Sig (Normalized) Sig (Original) cetirizine hydrochloride 10 mg oral capsule (1 source) Histamine-1 Receptor Antagonist take 1 capsule by mouth twice daily cetirizine (ZyrTEC) 10 mg capsule Take 1 capsule (10 mg) by mouth 2 times a day. Active ezetimibe 10 mg oral tablet (1 source) Dietary Cholesterol Absorption Inhibitor End: 04-03-2024 take 1 tablet by mouth once daily ezetimibe (Zetia) 10 mg tablet Take 1 tablet (10 mg) by mouth once daily. 04/03/2024 Discontinued (Therapy completed) fluticasone propionat,microniz (FLUTICASONE PROP, MICRO, BULK, MISC) (1 source) fluticasone propionat,microniz (FLUTICASONE PROP, MICRO, BULK, MISC) 1 puff once daily. Active metoprolol tartrate 25 mg oral tablet (12 sources) beta-Adrenergic Paulina Start: 11-27-2022 End: 04-03-2025 take 1 tablet by mouth twice daily metoprolol tartrate (Lopressor) 25 mg tablet Indications: ASHD (arteriosclerotic heart disease) , Status post insertion of drug eluting coronary artery stent Take 1 tablet (25 mg) by mouth 2 times a day. 180 tablet 3 04/03/2024 04/03/2025 Active nitroglycerin 0.4 mg sublingual tablet (12 sources) Nitrate Vasodilator nitroglycerin (Nitrostat) 0.[address] 1 tablet (0.4 mg) under the tongue every 5 minutes if needed. Active Completed/Discontinued Medications Medication Drug Class(es) Dates Sig (Normalized) Sig (Original) aspirin 81 mg delayed release oral tablet (13 sources) Platelet Aggregation Inhibitor, Nonsteroidal Anti-inflammatory Drug Start: 11-27-2022 take 1 tablet by mouth once daily Aspirin Low Dose 81 MG Oral Tablet Delayed Release TAKE 1 TABLET BY MOUTH EVERY DAY Quantity: 90 Refills: 3 Ordered: 30-Nov-2022 Renu Whitlock DO Start : 27-Nov-2022 Active aspirin 81 mg ch ewable tablet Chew 1 tablet (81 mg) once daily. Active atorvastatin 80 mg oral tablet (6 sources) HMG-CoA Reductase Inhibitor take 1 tablet by mouth at bedtime Atorvastatin Calcium 80 MG Oral Tablet TAKE 1 TABLET AT BEDTIME. Quantity: 0 Refills: 0 Ordered: 08-Dec-2021 DO Active clopidogrel 75 mg oral tablet (4 sources) P2Y12 Platelet Inhibitor Start: 09-27-20 take 1 tablet by mouth once Clopidogrel Bisulfate 75 MG Oral Tablet On day one take 600mg then 75mg daily Quantity: 98 Refills: 3 Ordered: 27-Sep-2022 Renu Whitlock DO Start : 27-Sep-2022 Active stop Brilinta/ new start Commit LOZG (11 sources) Commit LOZG USE DIRECTED ON PACKAGE Quantity: 0 Refills: 0 Ordered: 08-Dec-2021 DO Active 1 ml evolocumab 140 mg/ml auto-injector (4 sources) PCSK9 Inhibitor Start: 09-27-20 inject 140 mg by subcutaneous injection every other week Repatha SureClick 140 MG/ML Subcutaneous Solution Auto-injector Inject 140mg/1 ml every two weeks Quantity: 6 Refills: 3 Ordered: 27-Sep-2022 Renu Whitlock DO Start : 27-Sep-2022 Active please start prior authorization process rosuvastatin calcium 5 mg oral tablet (5 sources) HMG-CoA Reductase Inhibitor Start: 03-22-20 take 1 tablet by mouth once daily Rosuvastatin Calcium 5 MG Oral Tablet TAKE 1 TABLET DAILY. Quantity: 90 Refills: 3 Ordered: 22-Mar-2022 Renu Whitlock DO Start : 22-Mar-2022 Active replaces Atorvastatin ticagrelor 90 mg oral tablet (7 sources) take 1 tablet by mouth twice daily Brilinta 90 MG Oral Tablet TAKE 1 TABLET TWICE DAILY. Quantity: 0 Refills: 0 Ordered: 08-Dec-2021 DO Active Problems Active Problems Problem Classification Problem Date Documented Date Episodic/Chronic Acute myocardial infarction (11 sources) Myocardial infarction; Translations: [Acute myocardial infarction of unspecified site, episode of care unspecified] Onset: 12-29-2021 Chronic Cardiac dysrhythmias (2 sources) Bradycardia, unspecified; Translations: [Bradycardia, unspecified] Onset: 04-02-2025 Episodic Chronic obstructive pulmonary disease and bronchiectasis (1 source) Chronic obstructive pulmonary disease, unspecified; Translations: [J44.9 - Chronic obstructive pulmonary disease, unspecified] Onset: 12-06-2021 Chronic Coronary atherosclerosis and other heart disease (20 sources) Coronary arteriosclerosis; Translations: [Coronary atherosclerosis of unspecified type of vessel, [place] or graft] Onset: 10-03-2022 Chronic Coronary atherosclerosis and other heart disease (2 sources) Presence of coronary angioplasty implant and graft; Translations: [Presence of coronary angioplasty implant and graft] Onset: 12-28-2023 Episodic Disorders of lipid metabolism (20 sources) Mixed hyperlipidemia; Translations: [Mixed hyperlipidemia] Onset: 01-02-2022 Chronic Other nutritional; endocrine; and metabolic disorders (13 sources) Overweight in adulthood with body mass index of 25 or more but less than 30; Translations: [Overweight] Onset: 04-03-2024 04-03-2024 Episodic Other nutritional; endocrine; and metabolic disorders (2 sources) Body mass index (BMI) 26.0-26.9, adult; Translations: [Body mass index (BMI) 26.0-26.9, adult] Onset: 04-03-2024 Episodic Other skin disorders (2 sources) Localized swelling, mass and lump, head; Translations: [Localized swelling, mass and lump, head] Onset: 04-02-2025 Episodic Residual codes; unclassified (9 sources) Other specified health status; Translations: [Statin intolerance] Onset: 10-09-2022 04-03-2024 Episodic Substance-related disorders (16 sources) Smoker; Translations: [Tobacco use disorder] Onset: 12-08-2021 04-03-2024 Chronic Comment on above: LESS THAN A PACK, [place] BY DAY; couple packs daily; Unclassified (1 source) CONTACT W/AND (SUSP) EXPOS COVID-19; Translations: [CONTACT W/AND (SUSP) EXPOS COVID-19] Onset: 12-08-2021 Unclassified (1 source) I21.19 - ST elevation (STEMI) myocardial infarction involving other coronary artery of inferior wall; Translations: [I21.19 - ST elevation (STEMI) myocardial infarction involving other coronary artery of inferior wall] Onset: 12-06-2021 Past or Other Problems Problem Classification Problem Date Documented Da te Episodic/Chronic Genitourinary symptoms and ill-defined conditions (1 source) Other abnormal findings in urine; Translations: [OTHER ABNORMAL FINDINGS IN URINE] Onset: 01-02-2022 Episodic Nonspecific chest pain (3 sources) Chest pain, unspecified; Translations: [CHEST PAIN UNSPECIFIED] Onset: 12-06-2021 Episodic Residual codes; unclassified (1 source) Tobacco use; Translations: [Z72.0 - Tobacco use] Onset: 12-06-2021 Episodic Unclassified (1 source) Onset: 04-03-2024 04-03-2024 Results Test Name Value Interpretation Reference Range Facility LIPID PROFILEon 10-03-2022 CHOL-HDL RATIO NORM SEE BELOW Normal [facility] Comment on above: Result Comment: 3.3 - 4.4 LOW RISK 4.4 - 7.1 AVERAGE RISK 7.1 - 11.0 MODERATE RISK >11.0 HIGH RISK Performed By: #### P T, PTT #### [facility] [address], [place] [address] Dr. Derrick Sauer Cholesterol [Mass/Vol] 191 mg/dL Normal <=200 [facility] Comment on above: Performed By: #### P T, PTT #### [facility] [address] [address] [address] Derrick Sauer Cholesterol in HDL [Mass/Vol] 32 mg/dL Critically low 40-60 [facility] Comment on above: Performed By: #### P T, PTT #### [facility] [address] [address] [address] Derrick Sauer Cholesterol in LDL [Mass/Vol] 118.6 mg/dL Normal [facility] Comment on above: Performed By: #### P T, PTT #### [facility] [address] [address] [address] Derrick Sauer Cholesterol.total/ Cholesterol in HDL [Mass ratio] 6.0 {ratio} Normal [facility] Comment on above: Performed By: #### P T, PTT #### [facility] [address] [address] [address] Derrick Sauer HDL NORMAL > or = 60 mg/dl - LO W CARDIOVASCULAR RISK <40 mg/dl - HIGH CARDIOVASCULAR RISK Normal [facility] Comment on above: Performed By: #### P T, PTT #### [facility] [address] [address] [address] Derrick Sauer LDL CALC NORMAL SEE BELOW Normal [facility] Comment on above: Result Comment: <100 mg/dl OPTIMAL 100 - 129 mg/dl NEAR OR ABOVE OPTIMAL 130 - 159 mg/dl BORDERLINE HIGH 160 - 189 mg/dl HIGH >190 mg/dl VERY HIGH Performed By: #### P T, PTT #### [facility] [address] [address] [address] Derrick Sauer Triglyceride [Mass/Vol] 202 mg/dL Critically high <=150 [facility] Comment on above: Performed By: #### P T, PTT #### [facility] [address] [address] [address] Derrick Sauer VLDL CALC 40.4 mg/dL Normal [facility] Comment on above: Performed By: #### P T, PTT #### [facility] [address] [address] [address] Derrick Sauer Office Visit (Cardiology)on 09-27-2022 Follow-up visit Diagnoses/Problems Assessed CAD (coronary artery disease) (414.00) (I25.10) Mixed hyperlipidemia (272.2) (E78.2) Status post insertion of drug eluting coronary artery stent (V45.82) (Z95.5) History of ST elevation myocardial infarction (STEMI) (412) (I25.2) Overweight with body mass index (BMI) of 27 to 27.9 in adult (278.02,V85.23) (E66.3,Z68.27) Current smoker (305.1) (F17.200) couple packs daily Statin intolerance (995.27) (Z78.9) Orders CAD (coronary artery disease), History of ST elevation myocardial infarction (STEMI), Mixed hyperlipidemia, Statin intolerance Start: Clopidogrel Bisulfate 75 MG Oral Tablet; On day one take 600mg then 75mg daily Lipid Panel; Status:Active - Retrospective Authorization; Requested for:27Sep2022; Start: Repatha SureClick 140 MG/ML Subcutaneous Solution Auto-injector; Inject 140mg/1 ml every two weeks SocHx: Current smoker Tobacco Use Screening; Status:Complete; Done: 27Sep2022 Unlinked Stop: Brilinta 90 MG Oral Tablet Patient Instructions Please bring all medicines, vitamins, and herbal supplements with you when you come to the office. Prescriptions will not be filled unless you are compliant with your follow up appointments or have a follow up appointment scheduled as per instruction of your physician. Refills should be requested at the time of your visit. Follow up in 6 months Chief Complaint ZACARIAS EVANS is being seen for a 6 month follow-up of. 67-year-old gentleman returns for follow-up and doing well he has no cardiovascular complaints or angina or nitrate usage or repeat hospitalizations. He sustained a inferoposterior CT in November 2021 with primary revascularization of the circumflex with normal left ventricular function. He is intolerant to statins and he stopped his low-dose rosuvastatin this past year. He continues smoking 1 to 2 packs cigarettes daily we have counseled him extensively for over 5 minutes today on smoking cessation. He has underlying accelerated hypertension but blood pressure came down very nicely to 138/64 on my exam Brilinta unfortunate is not affordable for him therefore we will switch out for Plavix, will also obtain another lipid panel off statins, consider PCSK29 inhibitor therapy in the future we will follow-up in 6 months Surgical History Problems History of Hernia repair Current Meds Medication NameInstruction Aspirin 81 MG Oral Tablet ChewableTake 1 tablet daily Brilinta 90 MG Oral TabletTAKE 1 TABLET TWICE DAILY. Commit LOZGUSE DIRECTED ON PACKAGE Metoprolol Tartrate 25 MG Oral TabletTAKE 1 TABLET TWICE DAILY. Nitroglycerin 0.4 MG Sub[address]ual Tablet SublingualPLACE 1 TABLET UNDER THE TONGUE EVERY 5 MINUTES UP TO 3 DOSES NEEDED FOR CHEST PAIN. Rosuvastatin Calcium 5 MG Oral TabletTAKE 1 TABLET DAILY. Allergies Medication Penicillins Adverse Reaction; Anaphylaxis;; Recorded By: Celi San; 03/22/2022 10:57:26 AM atorvastatin Allergy; Vomiting; Recorded By: Gabrielle Christian; 03/22/2022 11:20:57 AM Statins Adverse Reaction; Vomiting; Recorded By: April Servin; 09/27/2022 10:28:10 AM Social History Problems Current smoker (305.1) (F17.200) couple packs daily Daily caffeine consumption 2 cup daily No alcohol use No illicit drug use Review of Systems Constitutional: not feeling tired. Cardiovascular: no intermittent leg claudication and as noted in HPI. Respiratory: shortness of breath, but no cough. Gastrointestinal: no change in bowel habits and no blood in stools. Integumentary: no skin rashes. Neurological: no seizures and no frequent falls. All other systems have been reviewed and are negative for complaint. Vitals Vital Signs Recorded: 27Sep2022 10:04AM Heart Rate60, R Radial Dmqucujy491, RUE, Sitting Clxiuiyrb19, RUE, Sitting Height5 ft 8 in Fphssd967 lb 3.2 oz BMI Fohlsxqqqp91.25 kg/m2 BSA Calculated1.95 Tobacco Usea) Yes Patient encouraged to stop using tobacco productsYes Falls Screening (Age 18+)a) No falls within the last year Physical Exam Constitutional: alert and in no acute distress. Neck: neck is supple, symmetric, trachea midline, no masses and no thyromegaly . Pulmonary: no increased work of breathing or signs of respiratory distress and lungs clear to auscultation. Cardiovascular: carotid pulses 2+ bilaterally with no bruit , JVP was normal, no thrills , regular rhythm, normal S1 and S2, no murmurs , pedal pulses 2+ bilaterally and no edema . Abdomen: abdomen non-tender, no masses and no hepatomegaly . Skin: skin warm and dry, normal skin turgor . Psychiatric judgment and insight is normal and oriented to person, place and time . Signatures Electronically signed by : Renu Whitlock DO; Sep 27 2022 10:30AM EST (Author) Normal [employer] Tobacco Screening.on 022 Fall risk assessment a) No falls within the last year -[facility] 250 DO Work Phone: Tobacco use status [facility] a) Yes [facility] 250 DO Work Phone: Tobacco Screening. Yes [facility] 250 DO Work Phone: Office Visit (Cardiology)on 03-22-2022 Follow-up visit Diagnoses/Problems Assessed CAD (coronary artery disease) (414.00) (I25.10) STEMI (ST elevation myocardial infarction) (410.90) (I21.3) Status post insertion of drug eluting coronary artery stent (V45.82) (Z95.5) Mixed hyperlipidemia (272.2) (E78.2) Overweight with body mass index (BMI) of 26 to 26.9 in adult (278.02,V85.22) (E66.3,Z68.26) Current smoker (305.1) (F17.200) couple packs daily Orders CAD (coronary artery disease) Start: Rosuvastatin Calcium 5 MG Oral Tablet; TAKE 1 TABLET DAILY Renew: Aspirin 81 MG Oral Tablet Chewable; Take 1 tablet daily Overweight with body mass index (BMI) of 26 to 26.9 in adult Healthy Weight Tips; Status:Complete - Retrospective Authorization; Done: 22Mar2022 Some eating tips that can help you lose weight.; Status:Complete - Retrospective Authorization; Done: 22Mar2022 SocHx: Current smoker You need to stop smoking. Though it is not easy, more than half of all adult smokers have quit. We encourage you to write down all the reasons you should quit smoking and set a quit date for yourself. Ask us how we can help. You may also call 4-509-YGWPNOW for free resources and assistance.; Status:Complete - Retrospective Authorization; Done: 22Mar2022 Tobacco Use Screening; Status:Complete; Done: 22Mar2022 Patient Instructions By signing my name below, I, Gabrielle Christian LPN,Ashlyibsavage, attest that this documentation has been prepared under the direction and in the presence of Dr. Renu Whitlock DO. Please bring all medicines, vitamins, and herbal supplements with you when you come to the office. Prescriptions will not be filled unless you are compliant with your follow up appointments or have a follow up appointment scheduled as per instruction of your physician. Refills should be requested at the time of your visit. Follow up in [6 ] months Chief Complaint ZACARIAS EVANS is being seen for a 3 month follow-up of. Patient is a 67-year-old gentleman returns for 4-month follow-up following recent inferolateral STEMI treated with primary PCI of the circumflex with preserved left ventricular function and no other significant angiographic disease. His original CT was November 2021. His only symptoms currently are routine morning associated nausea with medications. He believes it is related to his aspirin. He has ongoing tobacco use and presumed COPD. He has been smoking for over 50 years. He is intolerant to statins at least high-dose statins and took himself off atorvastatin Recommendations: Trial of low-dose rosuvastatin 5 mg daily, switch his aspirin to evening dose see if that makes a difference, will follow-up in 6 months, smoking cessation counseling for 3 minutes today. Surgical History Problems History of Hernia repair Current Meds Medication NameInstruction Aspirin 81 MG Oral Tablet ChewableTake 1 tablet daily Brilinta 90 MG Oral TabletTAKE 1 TABLET TWICE DAILY. Commit LOZGUSE DIRECTED ON PACKAGE Metoprolol Tartrate 25 MG Oral TabletTAKE 1 TABLET TWICE DAILY. Nitroglycerin 0.4 MG Sublingual Tablet SublingualPLACE 1 TABLET UNDER THE TONGUE EVERY 5 MINUTES UP TO 3 DOSES NEEDED FOR CHEST PAIN. Allergies Medication Penicillins Adverse Reaction; Anaphylaxis;; Recorded By: Celi San; 03/22/2022 10:57:26 AM atorvastatin Allergy; Vomiting; Recorded By: Gabrielle Christian; 03/22/2022 11:20:57 AM Social History Problems Current smoker (305.1) (F17.200) couple packs daily Daily caffeine consumption 2 cup daily No alcohol use No illicit drug use Review of Systems Constitutional: not feeling tired. Cardiovascular: no intermittent leg claudication and as noted in HPI. Respiratory: shortness of breath, but no cough. Gastrointestinal: no change in bowel habits and no blood in stools. Integumentary: no skin rashes. Neurological: dizziness, but no seizures and no frequent falls. All other systems have been reviewed and are negative for complaint. Vitals Vital Signs Recorded: 22Mar2022 11:03AMRecorded: 22Mar2022 10:58AM Gvoyovzb897, LUE, Gakgsfd381, RUE, Sitting Odlvtklgz16, LUE, Eramlnb90, RUE, Sitting Heart Rate54, R Radial Height5 ft 8 in Qizpsp134 lb BMI Iqnhfcptmb05.61 kg/m2 BSA Calculated1.93 Tobacco Usea) Yes Patient encouraged to stop using tobacco productsYes PHQ-2 #1. Over the last 2 weeks have you felt down, depressed or hopeless? (If yes, answer PHQ-9 below)No PHQ-2 #2. Over the last 2 weeks have you felt little interest or pleasure in doing things? (If yes, answer PHQ-9 below)No Fall Screeninga) No falls within the last year Physical Exam Constitutional: alert and in no acute distress. Neck: neck is supple, symmetric, trachea midline, no masses and no thyromegaly . Pulmonary: no increased work of breathing or signs of respiratory distress and lungs clear to auscultation. Cardiovascular: carotid pulses 2+ bilaterally with no bruit , JVP was normal, no thrills , regular rhythm, normal S1 and S2, no mur (more content not included)... Normal [employer] Tobacco Screening.on 022 Adult depression screening assessment No [facility] 250 DO Work Phone: Fall risk assessment a) No falls within the last year [facility] [employer] 250 DO Work Phone: Tobacco use status [facility] a) Yes [facility] [employer] DO Work Phone: Tobacco Screening. Yes [facility] 250 DO Work Phone: LIPID PROFILEon 02-13-2022 CHOL-HDL RATIO NORM SEE BELOW Normal [facility] Comment on above: Result Comment: 3.3 - 4.4 LOW RISK 4.4 - 7.1 AVERAGE RISK 7.1 - 11.0 MODERATE RISK >11.0 HIGH RISK Performed By: #### P T, PTT #### [facility] [address] [address] [address] Derrick Sauer Cholesterol [Mass/Vol] 195 mg/dL Normal <=200 [facility] Comment on above: Performed By: #### P T, PTT #### [facility] [address] [address] [address] Derrick Sauer Cholesterol in HDL [Mass/Vol] 28 mg/dL Critically low 40-60 [facility] Comment on above: Performed By: #### P T, PTT #### [facility] [address] [address] [address] Derrick Sauer Cholesterol in LDL [Mass/Vol] 121.6 mg/dL Normal [facility] Comment on above: Performed By: #### P T, PTT #### [facility] [address] [place] [address] Dr. Derrick Sauer Cholesterol.total/ Cholesterol in HDL [Mass ratio] 7.0 {ratio} Normal [facility] Comment on above: Performed By: #### P T, PTT #### [facility] [address] [address] [address] Derrick Sauer HDL NORMAL > or = 60 mg/dl - LO W CARDIOVASCULAR RISK <40 mg/dl - HIGH CARDIOVASCULAR RISK Normal [facility] Comment on above: Performed By: #### P T, PTT #### [facility] [address] [place] [address] Dr. Derrick Sauer LDL CALC NORMAL SEE BELOW Normal [facility] Comment on above: Result Comment: <100 mg/dl OPTIMAL 100 - 129 mg/dl NEAR OR ABOVE OPTIMAL 130 - 159 mg/dl BORDERLINE HIGH 160 - 189 mg/dl HIGH >190 mg/dl VERY HIGH Performed By: #### P T, PTT #### [facility] [address] [place] [address] Dr. Derrikc Sauer Triglyceride [Mass/Vol] 227 mg/dL Critically high <=150 [facility] Comment on above: Performed By: #### P T, PTT #### [facility] [address] [address] [address] Derrick Sauer VLDL CALC 45.4 mg/dL Normal [facility] Comment on above: Performed By: #### P T, PTT #### [facility] [address] [address] [address] Derrick Sauer SGOTon 02-13-2022 AST [Catalytic activity/Vol] 11 U/L Critically low 15-37 [facility] Comment on above: Performed By: #### P T, PTT #### [facility] [address] [address] [address] Derrick Sauer SGPTon 02-13-2022 ALT [Catalytic activity/Vol] 21 U/L Normal 16-63 [facility] Comment on above: Performed By: #### P T, PTT #### [facility] [address] [address] [address] Derrick Sauer Cardiac Stress Teston 2021 Cardiac Stress Test [address], [address] [address] Exercise Stress Test Patient Name: ZACARIAS EVANS Ordering Physician: Study Date: 01/11/2022 Reading Physician: [id number] Keenan Cyr MD MRN/PID: [id number] Supervising Physician: [id number] Cyr MD Accession/Order#: [id number] Referring Physician: [id number] SCHMIDT Date of : 1955 PCP: Gender: M Fellow: Height: 172.72 cm Nurse: Richa Gotti RN Weight: 80.29 kg [employer] Ax Developer: N/A BSA: 1.94 m2 Technologist: BMI: 26.91 kg/m2 Additional Staff: Age: 66 years cc report to: Study Type: Cardiac Stress Test Diagnosis/ICD: I21.3-ST elevation (STEMI) myocardial infarction of unspecified site; I25.10-Atherosclerotic heart disease Indication: ACS: STEMI Procedure/CPT: Stress Test Supervision-[id number] Falls Risk: Low: Patient has low risk for sustaining a fall; environmental safety interventions in place. Study Details: Correct procedure and correct patient verified verbally. Patient Performance: The peak heart rate achieved was 100 bpm, which was 65 % of the age predicted target heart rate of 154 bpm. The resting blood pressure was 136/70 mmHg with a heart rate of 63 bpm. The standing blood pressure was 160/80 mmHg with a heart rate of 73 bpm. The blood pressure response was hypertensive. The test was terminated due to: dyspnea and hypertension. Mild sinus tachycardia without ST-T changes. Double Product (HR x BP): 216. Baseline ECG: Resting ECG showed normal sinus rhythm. Normal sinus rhythm. Stress Stage Data: + +--+ ------+-------+ HR Sys BP Yoder BP + +--+ ------+-------+ Baseline Resting 63 136 70 + +--+ ------+-------+ Baseline Standing 73 160 80 + +--+ ------+-------+ Stage I 86 200 70 + +--+ ------+-------+ Stage II 86 216 78 + +--+ ------+-------+ Stage III 93 212 74 + +--+ ------+-------+ + +--+----- -+-------+ HR Sys BP Yoder BP + +--+----- -+-------+ Recovery I 90 214 76 + +--+----- -+-------+ Recovery II 76 192 76 + +--+----- -+-------+ Recovery III 73 172 80 + +--+----- -+-------+ Recovery IV 68 170 90 + +--+----- -+-------+ Recovery V 69 144 78 + +--+----- -+-------+ Summary: 1. Graded exercise stress test per the modified Rich protocol. 2. No provoked chest pain or arrhythmia. 3. Fair exercise tolerance. 4. Normal heart rate recovery phase. 5. Recommend referral to cardiac rehab. [id number] Keenan Cyr MD Electronically signed on 01/13/2022 at 3:33:20 PM Final Normal [facility] Cardiac Stress Test Please click on the link to view the study images [facility] Work Phone: Cardiac Stress Test -[facility] 250 DO Work Phone: AMYLASEon 12-29-2021 Amylase [Catalytic activity/Vol] 63 U/L Normal 31-110 [facility] Comment on above: Performed By: #### P T, PTT #### [facility] [address] [place] [address] Dr. Derrick Sauer CBC AUTO DIFFon 12-29-2021 BASO # 0.1 103/ul Normal 0.0-0.1 [facility] Comment on above: Performed By: #### P T, PTT #### [facility] [address] [place] [address] Dr. Derrick Sauer Basophils/100 WBC (Bld) 0.6 % Normal 0.2-2.0 [facility] Comment on above: Performed By: #### P T, PTT #### [facility] [address] [place] [address] Dr. Derrick Sauer EO # 0.2 103/ul Normal 0.0-0.7 [facility] Comment on above: Performed By: #### P T, PTT #### [facility] [address] [place] [address] Dr. Derrick Sauer Eosinophils/100 WBC (Bld) 1.4 % Normal 0.9-7.0 [facility] Comment on above: Performed By: #### P T, PTT #### [facility] [address] [place] [address] Dr. Derrick Sauer Erythrocyte distribution width (RBC) [Ratio] 13.2 % Normal 11.0-15.0 [facility] Comment on above: Performed By: #### P T, PTT #### [facility] [address] [place] [address] Dr. Derrick Sauer Hematocrit (Bld) [Volume fraction] 42.9 % Normal 42.0-54.0 [facility] Comment on above: Performed By: #### P T, PTT #### [facility] [address] [place] [address] Dr. Derrick Sauer Hemoglobin (Bld) [Mass/Vol] 14.0 g/dL Normal 14.0-18.0 [facility] Comment on above: Performed By: #### P T, PTT #### [facility] [address] [place] [address] Dr. Derrick Sauer IG # 0.11 10e3/ul Critically high 0.00-0.03 [facility] Comment on above: Performed By: #### P T, PTT #### [facility] [address] [place] [address] Dr. Derrick Sauer IG % 0.9 % Critically high 0.0-0.5 [facility] Comment on above: Performed By: #### P T, PTT #### [facility] [address] [place] [address] Dr. Derrick Sauer LYMPH # 2.3 103/ul Normal 1.2-3.8 [facility] Comment on above: Performed By: #### P T, PTT #### [facility] [address] [place] [address] Dr. Derrick Sauer Lymphocytes/100 WBC (Bld) 18.0 % Critically low 20.5-60.0 [facility] Comment on above: Performed By: #### P T, PTT #### [facility] [address] [place] [address] Dr. Derrick Sauer MANUAL DIFF REQ NO Normal [facility] Comment on above: Performed By: #### P T, PTT #### [facility] [address] [place] [address] Dr. Derrick Sauer MCH (RBC) [Entitic mass] 28.6 pg Normal 25.9-34.0 [facility] Comment on above: Performed By: #### P T, PTT #### [facility] [address] [place] [address] Dr. Derrick Sauer MCHC (RBC) [Mass/Vol] 32.6 g/dL Normal 29.9-35.2 [facility] Comment on above: Performed By: #### P T, PTT #### [facility] [address] [place] [address] Dr. Derrick Sauer MCV (RBC) [Entitic vol] 87.6 fL Normal 80.0-94.0 [facility] Comment on above: Performed By: #### P T, PTT #### [facility] [address] [place] [address] Dr. Derrick Sauer MONO # 0.8 103/ul Normal 0.3-0.8 [facility] Comment on above: Performed By: #### P T, PTT #### [facility] [address] [place] [address] Dr. Derrick Sauer Monocytes/100 WBC (Bld) 6.4 % Normal 1.7-12.0 [facility] Comment on above: Performed By: #### P T, PTT #### [facility] [address] [place] [address] Dr. Derrick Sauer NEUT # 9.1 103/ul Critically high 1.4-6.5 [facility] Comment on above: Performed By: #### P T, PTT #### [facility] [address] [address] [address] Derrick Sauer Neutrophils/100 WBC (Bld) 72.7 % Normal 43.0-75.0 [facility] Comment on above: Performed By: #### P T, PTT #### [facility] [address] [address] [address] Derrick Sauer Platelet mean volume (Bld) [Entitic vol] 9.1 fL Critically low 9.5-13.5 [facility] Comment on above: Performed By: #### P T, PTT #### [facility] [address] [address] [address] Derrick Sauer PLT 409 103/ul Normal 150-450 [facility] Comment on above: Performed By: #### P T, PTT #### [facility] [address] [place] [address] Dr. Derrick Sauer RBC 4.90 106/ul Normal 4.70-6.10 [facility] Comment on above: Performed By: #### P T, PTT #### [facility] [address] [address] [address] Derrick Sauer WBC 12.5 103/ul Critically high 4.0-11.0 [facility] Comment on above: Performed By: #### P T, PTT #### [facility] [address] [place] [address] Dr. Derrick Sauer CULTURE URINEon 12-29-2021 CULTURE URINE Culture Observations : No growth Normal [facility] Comment on above: Performed By: #### P T, PTT #### [facility] [address] [place] [address] Dr. Derrick Sauer LIPASEon 12-29-2021 Lipase [Catalytic activity/Vol] 95.0 U/L Normal 23.0-300.0 [facility] Comment on above: Performed By: #### P T, PTT #### [facility] [address] [place] [address] Dr. Derrick Sauer LIPID PROFILEon 12-29-2021 CHOL-HDL RATIO NORM SEE BELOW Normal [facility] Comment on above: Result Comment: 3.3 - 4.4 LOW RISK 4.4 - 7.1 AVERAGE RISK 7.1 - 11.0 MODERATE RISK >11.0 HIGH RISK Performed By: #### L IPID, LIPA, CMP, EVELIA #### [facility] [address] [address] [address] Derrick Sauer Cholesterol [Mass/Vol] 152 mg/dL Normal <=200 [facility] Comment on above: Performed By: #### L IPID, LIPA, CMP, EVELIA #### [facility] [address] [address] [address] Derrick Sauer Cholesterol in HDL [Mass/Vol] 26 mg/dL Normal [facility] Comment on above: Performed By: #### L IPID, LIPA, CMP, EVELIA #### [facility] [address] [place] [address] Dr. Derrick Sauer Cholesterol in LDL [Mass/Vol] 98.2 mg/dL Normal [facility] Comment on above: Performed By: #### L IPID, LIPA, CMP, EVELIA #### [facility] [address] [place] [address] Dr. Derrick Sauer Cholesterol.total/ Cholesterol in HDL [Mass ratio] 5.8 {ratio} Normal [facility] Comment on above: Performed By: #### L IPID, LIPA, CMP, EVELIA #### [facility] [address] [place] [address] Dr. Derrick Sauer HDL NORMAL > or = 60 mg/dl - LO W CARDIOVASCULAR RISK <40 mg/dl - HIGH CARDIOVASCULAR RISK Normal [facility] Comment on above: Performed By: #### L IPID, LIPA, CMP, EVELIA #### [facility] [address] [place] [address] Dr. Derrick Sauer LDL CALC NORMAL SEE BELOW Normal [facility] Comment on above: Result Comment: <100 mg/dl OPTIMAL 100 - 129 mg/dl NEAR OR ABOVE OPTIMAL 130 - 159 mg/dl BORDERLINE HIGH 160 - 189 mg/dl HIGH >190 mg/dl VERY HIGH Performed By: #### L IPID, LIPA, CMP, EVELIA #### [facility] [address] [place] [address] Dr. Derrick Sauer Triglyceride [Mass/Vol] 139 mg/dL Normal <=150 [facility] Comment on above: Performed By: #### L IPID, LIPA, CMP, EVELIA #### [facility] [address] [address] [address] Derrick Sauer VLDL CALC 27.8 mg/dL Normal [facility] Comment on above: Performed By: #### L IPID, LIPA, CMP, EVELIA #### [facility] [address] [address] [address] Derrick Sauer PROF 14(COMP METB)on 022 Albumin [Mass/Vol] 3.4 g/dL Critically low 3.5-5.0 [facility] Comment on above: Performed By: #### P T, PTT #### [facility] [address] [place] [address] Dr. Derrick Sauer Albumin/Globulin [Mass ratio] 0.7 {ratio} Normal [facility] Comment on above: Performed By: #### P T, PTT #### [facility] [address] [place] [address] Dr. Derrick Sauer ALP [Catalytic activity/Vol] 108 U/L Normal 38-126 [facility] Comment on above: Performed By: #### P T, PTT #### [facility] [address] [place] [address] Dr. Derrick Sauer ALT [Catalytic activity/Vol] 53 U/L Normal 21-72 [facility] Comment on above: Performed By: #### P T, PTT #### [facility] [address] [place] [address] Dr. Derrick Sauer Anion gap [Moles/Vol] 14.6 mmol/L Normal [facility] Comment on above: Performed By: #### P T, PTT #### [facility] [address] [place] [address] Dr. Derrick Sauer AST [Catalytic activity/Vol] 17 U/L Normal 17-59 [facility] Comment on above: Performed By: #### P T, PTT #### [facility] [address] [place] [address] Dr. Derrick Sauer Bilirubin [Mass/Vol] 0.4 mg/dL Normal 0.2-1.3 [facility] Comment on above: Performed By: #### P T, PTT #### [facility] [address] [place] [address] Dr. Derrick Sauer Calcium [Mass/Vol] 9.8 mg/dL Normal 8.4-10.2 [facility] Comment on above: Performed By: #### P T, PTT #### [facility] [address] [place] [address] Dr. Derrick Saure Chloride [Moles/Vol] 102 mmol/L Normal 98-107 [facility] Comment on above: Performed By: #### P T, PTT #### [facility] [address] [place] [address] Dr. Derrick Sauer CO2 [Moles/Vol] 27.5 mmol/L Normal 22.0-30.0 [facility] Comment on above: Performed By: #### P T, PTT #### [facility] [address] [place] [address] Dr. Derrick Sauer Creatinine [Mass/Vol] 1.00 mg/dL Normal 0.66-1.25 [facility] Comment on above: Performed By: #### P T, PTT #### [facility] [address] [place] [address] Dr. Derrick Sauer EGFR-AF CITIZEN OF [place] >60 Normal >=60 [facility] Comment on above: Performed By: #### P T, PTT #### [facility] [address] [place] [address] Dr. Derrick Sauer EGFR-NON AF CITIZEN OF [place] >60 Normal >=60 [facility] Comment on above: Performed By: #### P T, PTT #### [facility] [address] [place] [address] Dr. Derrick Sauer Globulin (S) [Mass/Vol] 4.9 g/dL Normal [facility] Comment on above: Performed By: #### P T, PTT #### [facility] [address] [place] [address] Dr. Derrick Sauer Glucose [Mass/Vol] 99 mg/dL Normal 74-106 [facility] Comment on above: Performed By: #### P T, PTT #### [facility] [address] [address] [address] Derrick Sauer Potassium [Moles/Vol] 4.1 mmol/L Normal 3.4-5.0 [facility] Comment on above: Performed By: #### P T, PTT #### [facility] [address] [address] [address] Derrick Sauer Protein [Mass/Vol] 8.3 g/dL Critically high 6.1-8.[address] [facility] Comment on above: Performed By: #### P T, PTT #### [facility] [address] [place] [address] Dr. Derrick Sauer Sodium [Moles/Vol] 140 mmol/L Normal 137-145 [facility] Comment on above: Performed By: #### P T, PTT #### [facility] [address] [address] [address] Derrick Sauer Urea nitrogen [Mass/Vol] 17.0 mg/dL Normal 9.0-20.0 [facility] Comment on above: Performed By: #### P T, PTT #### [facility] [address] [place] [address] Dr. Derrick Sauer Urea nitrogen/Creatinin e [Mass ratio] 17.0 mg/mg Normal [facility] Comment on above: Performed By: #### P T, PTT #### [facility] [address] [place] [address] Dr. Derrick Sauer PROTIMEon 12-29-2021 INR Coag (PPP) [Relative time] 1.08 {INR} Normal [facility] Comment on above: Performed By: #### P T, PTT #### [facility] [address] [place] [address] Dr. Derrick Sauer INR GUIDELINES SEE BELOW Normal [facility] Comment on above: Result Comment: KADE RED INR: 2.0 - 3.0 CONDITIONS NOT LISTED BELOW 2.5 - 3.5 FOR PROSTHETIC HEART VALVE REPLACEMENT 2.5 - 3.5 RECURRENT THROMBOSIS Performed By: #### P T, PTT #### [facility] [address] [place] [address] Dr. Derrick Sauer PT Coag (PPP) [Time] 11.6 s Normal 9.0-11.6 [facility] Comment on above: Performed By: #### P T, PTT #### [facility] [address] [place] [address] Dr. Derrick Sauer PTTon 12-29-2021 aPTT Coag (Bld) [Time] 29.9 s Normal 22.3-36.2 [facility] Comment on above: Performed By: #### P T, PTT #### [facility] [address] [place] [address] Dr. Derrick Sauer UA RANDOM W/MICROSCOPICon BACTERIA NONE SEEN Normal NONE SEEN [facility] Comment on above: Performed By: #### P T, PTT #### [facility] [address] [place] [address] Dr. Derrick Sauer Bilirubin Ql (U) Negative Normal NEGATIVE [facility] Comment on above: Performed By: #### P T, PTT #### [facility] [address] [place] [address] Dr. Derrick Sauer CAST NONE SEEN Normal NONE SEEN [facility] Comment on above: Performed By: #### P T, PTT #### [facility] [address] [place] [address] Dr. Derrick Sauer Clarity (U) CLEAR Normal CLEAR [facility] Comment on above: Performed By: #### P T, PTT #### [facility] [address] [place] [address] Dr. Derrick Sauer Color (U) LT. YELLOW Normal YELLOW [facility] Comment on above: Performed By: #### P T, PTT #### [facility] [address] [place] [address] Dr. Derrick Sauer Crystals LM Nom (Urine sed) NONE SEEN Normal NONE SEEN [facility] Comment on above: Performed By: #### P T, PTT #### [facility] [address] [address] [address] Derrick Sauer Epithelial cells LM Ql (Urine sed) RARE Normal NONE SEEN /RARE [facility] Comment on above: Performed By: #### P T, PTT #### [facility] [address] [place] [address] Dr. Derrick Sauer Glucose Ql (U) Negative Normal NEGATIVE [facility] Comment on above: Performed By: #### P T, PTT #### [facility] [address] [place] [address] Dr. Derrick Sauer Hemoglobin Ql (U) Negative Normal NEGATIVE [facility] Comment on above: Performed By: #### P T, PTT #### [facility] [address] [place] [address] Dr. Derrick Sauer Ketones Ql (U) Negative Normal NEGATIVE [facility] Comment on above: Performed By: #### P T, PTT #### [facility] [address] [place] [address] Dr. Derrick Sauer LEUKOCYTES Negative Normal NEGATIVE [facility] Comment on above: Performed By: #### P T, PTT #### [facility] [address] [place] [address] Dr. Derrick Sauer MUCOUS NONE SEEN Normal NONE SEEN [facility] Comment on above: Performed By: #### P T, PTT #### [facility] [address] [place] [address] Dr. Derrick Sauer Nitrite Ql (U) Negative Normal NEGATIVE [facility] Comment on above: Performed By: #### P T, PTT #### [facility] [address] [place] [address] Dr. Derrick Sauer pH (U) 6.0 [pH] Normal 5-9 [facility] Comment on above: Performed By: #### P T, PTT #### [facility] [address] [place] [address] Dr. Derrick Sauer RBC NONE SEEN Abnormal 0-2 [facility] Comment on above: Performed By: #### P T, PTT #### [facility] [address] [place] [address] Dr. Derrick Sauer SPEC GRAVITY 1.020 Normal 1.005-<=1.025 [facility] Comment on above: Performed By: #### P T, PTT #### [facility] [address] [place] [address] Dr. Derrick Sauer UA PROTEIN Negative Normal NEGATIVE/ TRACE [facility] Comment on above: Performed By: #### P T, PTT #### [facility] [address] [place] [address] Dr. Derrick Sauer Urobilinogen Qn (U) 0.2 {Carly'U}/dL Normal 0.2 - 1.0 [facility] Comment on above: Performed By: #### P T, PTT #### [facility] [address] [place] [address] Dr. Derrick Sauer WBC NONE SEEN Normal NONE SEEN [facility] Comment on above: Performed By: #### P T, PTT #### [facility] [address] [place] [address] Dr. Derrick Sauer CBC W MANUAL DIFFon 12-20-19 22 ATYPICAL LYMPH # Normal [facility] Comment on above: Performed By: #### C YANNICK #### [facility] [address] [place] [address] Dr. Derrick Sauer ATYPICAL LYMPH % Normal [facility] Comment on above: Performed By: #### C BCSULAIMAN #### [facility] [address] [place] [address] Dr. Derrick Sauer BAND # 0.2 103/ul Normal 0.0-0.3 [facility] Comment on above: Performed By: #### C BCMAN #### [facility] [address] [place] [address] Dr. Derrick Sauer BAND % 1 % Normal 0-5 [facility] Comment on above: Performed By: #### C BCMAN #### [facility] [address] [place] [address] Dr. Derrick Sauer BASOM # 0.00 103/ul Normal 0.00-0.10 [facility] Comment on above: Performed By: #### C BCMAN #### [facility] [address] [address] [address] Derrick Sauer BASOM % 0.0 % Critically low 0.2-2.0 [facility] Comment on above: Performed By: #### C BCMAN #### [facility] [address] [address] [address] Derrick Sauer BLAST # Normal [facility] Comment on above: Performed By: #### C BCMAN #### [facility] [address] [address] [address] Derrick Sauer BLAST % Normal [facility] Comment on above: Performed By: #### C BCSULAIMAN #### [facility] [address] [place] [address] Dr. Derrick Sauer CORRECTED WBC Normal 4.0-11.0 [facility] Comment on above: Performed By: #### C BCSULAIMAN #### [facility] [address] [place] [address] Dr. Derrick Sauer EOS # 0.00 103/ul Normal 0.00-0.70 [facility] Comment on above: Performed By: #### C BCSULAIMAN #### [facility] [address] [place] [address] Dr. Derrick Sauer EOS% 0.0 % Critically low 0.9-7.0 [facility] Comment on above: Performed By: #### C BCSULAIMAN #### [facility] [address] [place] [address] Dr. Derrick Sauer HCT 39.0 % Critically low 42.0-54.0 [facility] Comment on above: Performed By: #### C BCSULAIMAN #### [facility] [address] [place] [address] Dr. Derrick Sauer HGB 12.7 g/dl Critically low 14.0-18.0 [facility] Comment on above: Performed By: #### C BCSULAIMAN #### [facility] [address] [place] [address] Dr. Derrick Sauer LYMPHM # 1.08 103/ul Critically low 1.20-3.80 [facility] Comment on above: Performed By: #### C YANNICK #### [facility] [address] [address] [address] Derrick Sauer LYMPHM% 7.0 % Critically low 20.5-60.0 [facility] Comment on above: Performed By: #### C YANNICK #### [facility] [address] [address] [address] Derrick Sauer MCH 28.7 pg Normal 25.9-34.0 [facility] Comment on above: Performed By: #### C YANNICK #### [facility] [address] [place] [address] Dr. Derrick Sauer MCHC 32.6 g/dl Normal 29.9-35.2 [facility] Comment on above: Performed By: #### C YANNICK #### [facility] [address] [place] [address] Dr. Derrick Sauer MCV 88.0 fL Normal 80.0-94.0 [facility] Comment on above: Performed By: #### C YANNICK #### [facility] [address] [place] [address] Dr. Derrick Sauer METAMYELOCYTE # Normal [facility] Comment on above: Performed By: #### C YANNICK #### [facility] [address] [place] [address] Dr. Derrick Sauer METAMYELOCYTE % Normal [facility] Comment on above: Performed By: #### C YANNICK #### [facility] [address] [address] [address] Derrick Sauer MONOM# 1.55 103/ul Critically high 0.30-0.80 [facility] Comment on above: Performed By: #### C YANNICK #### [facility] [address] [place] [address] Dr. Derrick Sauer MONOM% 10.0 % Normal 1.7-12.0 [facility] Comment on above: Performed By: #### C YANNICK #### [facility] [address] [place] [address] Dr. Derrick Sauer MPV 10.0 fL Normal 9.5-13.5 [facility] Comment on above: Performed By: #### C YANNICK #### [facility] [address] [place] [address] Dr. Derrick Sauer MYELOCYTE # Normal [facility] Comment on above: Performed By: #### C YANNICK #### [facility] [address] [place], [place] [id number] Dr. Derrick Sauer MYELOCYTE % Normal [facility] Comment on above: Performed By: #### C YANNICK #### [facility] [address] [address] [address] Derrick Sauer NRBC Normal [facility] Comment on above: Performed By: #### C YANNICK #### [facility] [address] [place] [address] Dr. Derrick Sauer PLT 271 103/ul Normal 150-450 [facility] Comment on above: Performed By: #### C YANNICK #### [facility] [address] [place] [address] Dr. Derrick Sauer RBC 4.43 106/ul Critically low 4.70-6.10 [facility] Comment on above: Performed By: #### C YANNICK #### [facility] [address] [place] [address] Dr. Derrick Sauer RDW 13.5 % Normal 11.0-15.0 [facility] Comment on above: Performed By: #### C YANNICK #### [facility] [address] [place] [address] Dr. Derrick Sauer SEG # 12.71 103/ul Critically high 1.40-6.50 [facility] Comment on above: Performed By: #### C YANNICK #### [facility] [address] [place] [address] Dr. Derrick Sauer SEG % 82.0 % Critically high 43.0-75.0 [facility] Comment on above: Performed By: #### C YANNICK #### [facility] [address] [place] [address] Dr. Derrick Sauer WBC 15.5 103/ul Critically high 4.0-11.0 [facility] Comment on above: Performed By: #### C BCMAN #### [facility] [address] [place] [address] Dr. Derrick Sauer PROF CHEM 8 (BAS METB)on Anion gap [Moles/Vol] 13.7 mmol/L Normal [facility] Comment on above: Performed By: #### B MP, ALT, AST #### [facility] [address] [place] [address] Dr. Derrick Sauer Calcium [Mass/Vol] 9.2 mg/dL Normal 8.4-10.2 [facility] Comment on above: Performed By: #### B MP, ALT, AST #### [facility] [address] [place] [address] Dr. Derrick Sauer Chloride [Moles/Vol] 101 mmol/L Normal 98-107 [facility] Comment on above: Performed By: #### B MP, ALT, AST #### [facility] [address] [place] [address] Dr. Derrick Sauer CO2 [Moles/Vol] 26.1 mmol/L Normal 22.0-30.0 [facility] Comment on above: Performed By: #### B MP, ALT, AST #### [facility] [address] [place] [address] Dr. Derrick Sauer Creatinine [Mass/Vol] 0.95 mg/dL Normal 0.66-1.25 [facility] Comment on above: Performed By: #### B MP, ALT, AST #### [facility] [address] [place] [address] Dr. Derrick Sauer EGFR-AF CITIZEN OF [place] >60 Normal >=60 [facility] Comment on above: Performed By: #### B MP, ALT, AST #### [facility] [address] [place] [address] Dr. Derrick Sauer EGFR-NON AF CITIZEN OF [place] >60 Normal >=60 [facility] Comment on above: Performed By: #### B MP, ALT, AST #### [facility] [address] [place] [address] Dr. Derrick Sauer Glucose [Mass/Vol] 140 mg/dL Critically high 74-106 [facility] Comment on above: Performed By: #### B MP, ALT, AST #### [facility] [address] [place] [address] Dr. Derrick Sauer Potassium [Moles/Vol] 3.8 mmol/L Normal 3.4-5.0 [facility] Comment on above: Performed By: #### B MP, ALT, AST #### [facility] [address] [place] [address] Dr. Derrick Sauer Sodium [Moles/Vol] 137 mmol/L Normal 137-145 [facility] Comment on above: Performed By: #### B MP, ALT, AST #### [facility] [address] [place] [address] Dr. Derrick Sauer Urea nitrogen [Mass/Vol] 16.0 mg/dL Normal 9.0-20.0 [facility] Comment on above: Performed By: #### B MP, ALT, AST #### [facility] [address] [place] [address] Dr. Derrick Sauer Urea nitrogen/Creatinin e [Mass ratio] 16.8 mg/mg Normal [facility] Comment on above: Performed By: #### B MP, ALT, AST #### [facility] [address] [place] [address] Dr. Derrick Sauer SGGinna 12-20-2021 AST [Catalytic activity/Vol] 45 U/L Normal 17-59 [facility] Comment on above: Performed By: #### B MP, ALT, AST #### [facility] [address] [place] [address] Dr. Derrick Sauer SGPTon 12-20-2021 ALT [Catalytic activity/Vol] 81 U/L Critically high 21-72 [facility] Comment on above: Performed By: #### B MP, ALT, AST #### [facility] [address] [place] [address] Dr. Derrick Sauer Tobacco Screening.on 022 Fall risk assessment a) [facility] the [facility] Work Phone: Tobacco use status CPHS a) Yes [facility] 250 DO Work Phone: Tobacco Screening. Yes [facility] 250 DO Work Phone: No Panel Informationon 12-07 [facility] 250 DO Work Phone: 12.1\S\12.1 above high threshold 4.1-10.5 [facility] 250 DO Work Phone: 76.61\S\76.61 Normal [facility] 250 DO Work Phone: Comment on above: PERFORMED BY:[address] [address] [address] [place], [place] [id number] MEDICAL DIRECTORKAYA HOLCOMB M.D. 8.9\S\8.9 Normal 8.2-10.2 [facility] 250 DO Work Phone: 23.9\S\23.9 Normal 22.0-30.0 [facility] 250 DO Work Phone: 104\S\104 Normal 95-114 [facility] 250 DO Work Phone: 3.9\S\3.9 Normal 3.5-5.1 [facility] 250 DO Work Phone: 138\S\138 Normal 136-146 [facility] 250 DO Work Phone: > 60 Normal [facility] 250 DO Work Phone: Comment on above: GFR estimated refere nce range: According to KDOQI guidelines, <60 ml/min/1.73m2 is sufficient to diagnose a patient with chronic kidney disease. 0.93\S\0.93 Normal 0.64-1.27 [facility] 250 DO Work Phone: 11\S\11 Normal 9-23 [facility] 250 DO Work Phone: 98\S\98 Normal 70-100 [facility] 250 DO Work Phone: Comment on above: Random Glucose Refer ence Range is dependent on time and content of last meal. Glucose of more than 200 mg/dL in a nonstressed, ambulatory subject supports the diagnosis of Diabetes Mellitus. ADA recommended reference range 0.0\S\0.0 Normal 0-0.5 [facility] 250 DO Work Phone: Comment on above: PERFORMED BY:[address] [address] [address] [place], [place] [id number] MEDICAL DIRECTORKAYA HOLCOMB M.D. 0.1\S\0.1 Normal 0.0-0.45 [facility] 250 DO Work Phone: 1.0\S\1.0 above high threshold 0.0-0.8 [facility] 250 DO Work Phone: 2.5\S\2.5 Normal 1.00-4.8 [facility] 250 DO Work Phone: 8.5\S\8.5 above high threshold 1.8-7.7 [facility] 250 DO Work Phone: 0.2\S\0.2 Normal . [facility] 250 DO Work Phone: 0.7\S\0.7 Normal . [facility] 250 DO Work Phone: 8.4\S\8.4 Normal . [facility] 250 DO Work Phone: 20.6\S\20.6 Normal . [facility] 250 DO Work Phone: 70.1\S\70.1 Normal . [facility] 250 DO Work Phone: 7.9\S\7.9 Normal 6.6-10.1 [facility] 250 DO Work Phone: 211\S\211 Normal 150-450 [facility] 250 DO Work Phone: 14.2\S\14.2 Normal 12.0-14.8 [facility] 250 DO Work Phone: 34.0\S\34.0 Normal 32.5-35.6 [facility] 250 DO Work Phone: 29.3\S\29.3 Normal 27.5-35.2 [facility] 250 DO Work Phone: 86.0\S\86.0 Normal 83.5-101 [facility] 250 DO Work Phone: 41.4\S\41.4 Normal 38.8-50.0 [facility] 250 DO Work Phone: 14.1\S\14.1 Normal 13.0-17.0 [facility] 250 DO Work Phone: 4.81\S\4.81 Normal 3.90-5.60 [facility] 250 DO Work Phone: [phone]\S\[phone] Critically high 0-20 [facility] 250 DO Work Phone: Comment on above: Results called at 06 13 on 12/07/21PERFORMED BY:[facility] [place], [place] [id number] MEDICAL DIRECTORKAYA HOLCOMB M.D. BNPon 12-06-2021 Natriuretic peptide B (Bld) [Mass/Vol] 105.0 pg/mL Normal <=900.0 [facility] Comment on above: Performed By: #### P T, PTT #### [facility] [address] [address] [address] Derrick Sauer CARDIAC WENDY ADMITon 022 CK [Catalytic activity/Vol] 90 U/L Normal 55-170 [facility] Comment on above: Performed By: #### P T, PTT #### [facility] [address] [address] [address] Derrick Sauer CK.MB [Mass/Vol] 0.88 ng/mL Normal <=2.37 [facility] Comment on above: Performed By: #### P T, PTT #### [facility] [address] [place] [address] Dr. Derrick Sauer HSTROP 35.3 pg/mL Normal 4.0-42.2 [facility] Comment on above: Result Comment: CUT- OFF POINTS HAVE BEEN ESTABLISHED BASED ON THE FOURTH UNIVERSAL DEFINITIONS OF MYOCARDIAL INFARCTION. THE UPPER REFERENCE LIMIT (URL) OF TROPONIN, DEFINED THE 99TH PERCENTILE OF cTnI DISTRIBUTION IN A REFERENCE POPULATION, HAS BEEN CONFIRMED THE DECISION THRESHOLD FOR CT DIAGNOSIS. Performed By: #### P T, PTT #### [facility] [address] [place] [address] Dr. Derrick Sauer CARLINE 62.0 ng/mL Normal <=121.0 [facility] Comment on above: Performed By: #### P T, PTT #### [facility] [address] [place] [address] Dr. Derrick Sauer CBC AUTO DIFFon 12-06-2021 BASO # 0.1 103/ul Normal 0.0-0.1 [facility] Comment on above: Performed By: #### P T, PTT #### [facility] [address] [place] [address] Dr. Derrick Sauer Basophils/100 WBC (Bld) 0.5 % Normal 0.2-2.0 [facility] Comment on above: Performed By: #### P T, PTT #### [facility] [address] [place] [address] Dr. eDrrick Sauer EO # 0.1 103/ul Normal 0.0-0.7 [facility] Comment on above: Performed By: #### P T, PTT #### [facility] [address] [place] [address] Dr. Derrick Sauer Eosinophils/100 WBC (Bld) 0.7 % Critically low 0.9-7.0 [facility] Comment on above: Performed By: #### P T, PTT #### [facility] [address] [place] [address] Dr. Derrick Sauer Erythrocyte distribution width (RBC) [Ratio] 13.7 % Normal 11.0-15.0 [facility] Comment on above: Performed By: #### P T, PTT #### [facility] [address] [place] [address] Dr. Derrick Sauer Hematocrit (Bld) [Volume fraction] 44.6 % Normal 42.0-54.0 [facility] Comment on above: Performed By: #### P T, PTT #### [facility] [address] [place] [address] Dr. Derrick Sauer Hemoglobin (Bld) [Mass/Vol] 14.9 g/dL Normal 14.0-18.0 [facility] Comment on above: Performed By: #### P T, PTT #### [facility] [address] [place] [address] Dr. Derrick Sauer IG # 0.06 10e3/ul Critically high 0.00-0.03 [facility] Comment on above: Performed By: #### P T, PTT #### [facility] [address] [place] [address] Dr. Derrick Sauer IG % 0.5 % Normal 0.0-0.5 [facility] Comment on above: Performed By: #### P T, PTT #### [facility] [address] [place] [address] Dr. Derrick Sauer LYMPH # 2.1 103/ul Normal 1.2-3.8 [facility] Comment on above: Performed By: #### P T, PTT #### [facility] [address] [place] [address] Dr. Derrick Sauer Lymphocytes/100 WBC (Bld) 18.7 % Critically low 20.5-60.0 [facility] Comment on above: Performed By: #### P T, PTT #### [facility] [address] [place] [address] Dr. Derrick Sauer MANUAL DIFF REQ NO Normal [facility] Comment on above: Performed By: #### P T, PTT #### [facility] [address] [place] [address] Dr. Derrick Sauer MCH (RBC) [Entitic mass] 29.2 pg Normal 25.9-34.0 [facility] Comment on above: Performed By: #### P T, PTT #### [facility] [address] [place] [address] Dr. Derrick Sauer MCHC (RBC) [Mass/Vol] 33.4 g/dL Normal 29.9-35.2 [facility] Comment on above: Performed By: #### P T, PTT #### [facility] [address] [place] [address] Dr. Derrick Sauer MCV (RBC) [Entitic vol] 87.5 fL Normal 80.0-94.0 [facility] Comment on above: Performed By: #### P T, PTT #### [facility] [address] [place] [address] Dr. Derrick Sauer MONO # 0.9 103/ul Critically high 0.3-0.8 [facility] Comment on above: Performed By: #### P T, PTT #### [facility] [address] [place] [address] Dr. Derrick Sauer Monocytes/100 WBC (Bld) 7.6 % Normal 1.7-12.0 [facility] Comment on above: Performed By: #### P T, PTT #### [facility] [address] [place] [address] Dr. Derrick Sauer NEUT # 8.1 103/ul Critically high 1.4-6.5 [facility] Comment on above: Performed By: #### P T, PTT #### [facility] [address] [place] [address] Dr. Derrick Sauer Neutrophils/100 WBC (Bld) 72.0 % Normal 43.0-75.0 [facility] Comment on above: Performed By: #### P T, PTT #### [facility] [address] [place] [address] Dr. Derrick Sauer Platelet mean volume (Bld) [Entitic vol] 9.6 fL Normal 9.5-13.5 [facility] Comment on above: Performed By: #### P T, PTT #### [facility] [address] [place] [address] Dr. Derrick Sauer PLT 228 103/ul Normal 150-450 [facility] Comment on above: Performed By: #### P T, PTT #### [facility] [address] [place] [address] Dr. Derrick Sauer RBC 5.10 106/ul Normal 4.70-6.10 [facility] Comment on above: Performed By: #### P T, PTT #### [facility] [address] [place] [address] Dr. Derrick Sauer WBC 11.3 103/ul Critically high 4.0-11.0 [facility] Comment on above: Performed By: #### P T, PTT #### [facility] [address] [place] [address] Dr. Derrick Sauer [facility]13 SARS-CoV-2 (COVID-19) RNA IGOR+probe Ql (Unsp spec) Not detected Normal NOT DETECTED [facility] Comment on above: Result Comment: When diagnostic testing is negative, the possibility of a false negative should be considered in the context of a patient's recent exposures and the presence of clinical signs and symptoms consistent with SARS-CoV-2. This test is not yet approved or cleared by the [place] Food and Drug Administration (FDA). This test was developed by [employer], [place], [place]. The performance characteristics of this test were validated by [facility]. The results are not intended to be used as the sole means for clinical diagnosis or patient management decisions. [facility] is authorized under Clinical Laboratory Improvement Amendments (CLIA) to perform high- complexity testing. This test is not yet approved or cleared by the [place] FDA. When there are no FDA-approved or cleared tests available, and other criteria are met, FDA can make tests available under an emergency access mechanism called an Emergency Use Authorization (EUA). The EUA for this test is supported by the Conveyor [employer] Installer of Health and Human Service's declaration that circumstances exist to justify the emergency use of in vitro diagnostics for the detection and/or diagnosis of the virus that causes COVID-19. This EUA will remain in effect for the duration of the COVID-19 declaration justifying emergency of IVDs, unless it is terminated or revoked by the FDA (after which the test may no longer be used). Performed By: #### C [facility] #### [facility] [address] [place] [address] Dr. Derrick Sauer No Panel Informationon 12-06 [id number] Critically high 0-20 [facility] [place] [facility] 250 DO Work Phone: Comment on above: Results called at 21 40 on 12/06/21PERFORMED BY:[facility] [place], [place] [id number] MEDICAL DIRECTORKAYA HOLCOMB M.D. 69097\S\[id number] Critically high 0-20 [facility] [place] [facility] 250 DO Work Phone: Comment on above: Results called at 18 08 on 12/06/21PERFORMED BY:[facility] [place] [id number] MEDICAL WALI HOLCOMB M.D. [id number] Critically high 0-20 [facility] [place] [facility] 250 DO Work Phone: Comment on above: Results called at 15 02 on 12/06/21PERFORMED BY:[facility] [place] [id number] MEDICAL DIRECTORKAYA HOLCOMB M.D. PROF 14(COMP METB)on 01-25-2 022 Albumin [Mass/Vol] 3.9 g/dL Normal 3.5-5.0 [facility] Comment on above: Performed By: #### P T, PTT #### [facility] [address] [place] [address] Dr. Derrick Sauer Albumin/Globulin [Mass ratio] 1.0 {ratio} Normal [facility] Comment on above: Performed By: #### P T, PTT #### [facility] [address] [address] [address] Derrick Sauer ALP [Catalytic activity/Vol] 89 U/L Normal 38-126 [facility] Comment on above: Performed By: #### P T, PTT #### [facility] [address] [place] [address] Dr. Derrick Sauer ALT [Catalytic activity/Vol] 30 U/L Normal 21-72 [facility] Comment on above: Performed By: #### P T, PTT #### [facility] [address] [place] [address] Dr. Derrick Sauer Anion gap [Moles/Vol] 17.2 mmol/L Normal [facility] Comment on above: Performed By: #### P T, PTT #### [facility] [address] [place] [address] Dr. Derrick Sauer AST [Catalytic activity/Vol] 16 U/L Critically low 17-59 [facility] Comment on above: Performed By: #### P T, PTT #### [facility] [address] [place] [address] Dr. Derrick Sauer Bilirubin [Mass/Vol] 0.5 mg/dL Normal 0.2-1.3 [facility] Comment on above: Performed By: #### P T, PTT #### [facility] [address] [place] [address] Dr. Derrick Sauer Calcium [Mass/Vol] 9.0 mg/dL Normal 8.4-10.2 [facility] Comment on above: Performed By: #### P T, PTT #### [facility] [address] [place] [address] Dr. Derrick Sauer Chloride [Moles/Vol] 100 mmol/L Normal 98-107 [facility] Comment on above: Performed By: #### P T, PTT #### [facility] [address] [place] [address] Dr. Derrick Sauer CO2 [Moles/Vol] 23.4 mmol/L Normal 22.0-30.0 [facility] Comment on above: Performed By: #### P T, PTT #### [facility] [address] [place] [address] Dr. Derrick Sauer Creatinine [Mass/Vol] 1.07 mg/dL Normal 0.66-1.25 [facility] Comment on above: Performed By: #### P T, PTT #### [facility] [address] [place] [address] Dr. Derrick Sauer EGFR-AF CITIZEN OF [place] >60 Normal >=60 [facility] Comment on above: Performed By: #### P T, PTT #### [facility] [address] [place] [address] Dr. Derrick Sauer EGFR-NON AF CITIZEN OF [place] >60 Normal >=60 [facility] Comment on above: Performed By: #### P T, PTT #### [facility] [address] [place] [address] Dr. Derrick Sauer Globulin (S) [Mass/Vol] 3.9 g/dL Normal [facility] Comment on above: Performed By: #### P T, PTT #### [facility] [address] [place] [address] Dr. Derrick Sauer Glucose [Mass/Vol] 181 mg/dL Critically high 74-[address] [facility] Comment on above: Performed By: #### P T, PTT #### [facility] [address] [place] [address] Dr. Derrick Sauer Potassium [Moles/Vol] 3.6 mmol/L Normal 3.4-5.0 [facility] Comment on above: Performed By: #### P T, PTT #### [facility] [address] [place] [address] Dr. Derrick Sauer Protein [Mass/Vol] 7.8 g/dL Normal 6.1-8.2 [facility] Comment on above: Performed By: #### P T, PTT #### [facility] [address] [place] [address] Dr. Derrick Sauer Sodium [Moles/Vol] 137 mmol/L Normal 137-145 [facility] Comment on above: Performed By: #### P T, PTT #### [facility] [address] [place] [address] Dr. Derrick Sauer Urea nitrogen [Mass/Vol] 14.0 mg/dL Normal 9.0-20.0 [facility] Comment on above: Performed By: #### P T, PTT #### [facility] [address] [place] [address] Dr. Derrick Sauer Urea nitrogen/Creatinin e [Mass ratio] 13.1 mg/mg Normal [facility] Comment on above: Performed By: #### P T, PTT #### [facility] [address] [place] [address] Dr. Derrick Sauer PROTIMEon 12-06-2021 INR Coag (PPP) [Relative time] 0.99 {INR} Normal [facility] Comment on above: Performed By: #### P T, PTT #### [facility] [address] [place] [address] Dr. Derrick Sauer INR GUIDELINES SEE BELOW Normal [facility] Comment on above: Result Comment: KADE RED INR: 2.0 - 3.0 CONDITIONS NOT LISTED BELOW 2.5 - 3.5 FOR PROSTHETIC HEART VALVE REPLACEMENT 2.5 - 3.5 RECURRENT THROMBOSIS Performed By: #### P T, PTT #### [facility] [address] [place] [address] Dr. Derrick Sauer PT Coag (PPP) [Time] 10.7 s Normal 9.0-11.6 [facility] Comment on above: Performed By: #### P T, PTT #### [facility] [address] [place] [address] Dr. Derrick Sauer PTTon 12-06-2021 aPTT Coag (Bld) [Time] 27.1 s Normal 22.3-36.2 [facility] Comment on above: Performed By: #### P T, PTT #### [facility] [address] [address] [address] Derrick Sauer XR CHEST 1 Von 12-06-2021 XR CHEST 1 V EXAMINATION: XR CHES T 1 V HISTORY: CHEST PAIN, UNSPECIFIED COMPARISON: 12/18/2016 TECHNIQUE: AP portable erect FINDINGS: LUNGS: No significant pulmonary parenchymal abnormalities. VASCULATURE: No increased pulmonary vasculature. PLEURA: No pneumothorax, effusion, or pleural thickening. CARDIAC: No cardiomegaly or cardiac silhouette abnormality. MEDIASTINUM: No visible mass or adenopathy. BONES: No fracture or visible bone lesion. OTHER: Negative. IMPRESSION: No acute disease. Electronically authenticated by: VIRGINIA ALFARO Date: 2021-12-06 09:[address] [facility] Vital Signs Date Time Vital Sign Value Performing Clinician Facility 04-03-2024 10:31-0400 Body height 172.7 cm Renu Whitlock DO Work Phone: [facility] 04-03-2024 10:31-0400 Body mass index (BMI) [Ratio] 26.3 kg/m2 Renu Whitlock DO Work Phone: [facility] 04-03-2024 10:31-0400 Body weight 78.47 kg Renu Whitlock DO Work Phone: [facility] 04-03-2024 10:31-0400 Diastolic blood pressure 64 mm[Hg] Renu Whitlock DO Work Phone: [facility] 04-03-2024 10:31-0400 Heart rate 58 /min Renu Whitlock DO Work Phone: [facility] 04-03-2024 10:31-0400 Systolic blood pressure 122 mm[Hg] Renu Whitlock DO Work Phone: [facility] 09-27-2022 10:52-0500 Diastolic blood pressure 74 mm[Hg] Sergio Vuongy Work Phone: [facility] DO Work Phone: 09-27-2022 10:52-0500 Systolic blood pressure 136 mm[Hg] Sergio Jf Hoy Work Phone: [facility] DO Work Phone: 09-27-2022 10:04-0500 Body height 172.72 cm Sergio M Hoy Work Phone: [facility] DO Work Phone: 09-27-2022 10:04-0500 Body mass index (BMI) [Ratio] 27.25 kg/m2 Sergio Jf Hoy Work Phone: [facility] 250 DO Work Phone: 09-27-2022 10:04-0500 Body surface area Derived from formula 1.95 m2 Sergio Jf Hoy Work Phone: [facility] 250 DO Work Phone: 09-27-2022 10:04-0500 Body weight 81.29 kg Sergio Rhoades Hoy Work Phone: [facility] 250 DO Work Phone: 09-27-2022 10:04-0500 Diastolic blood pressure 72 mm[Hg] Sergio M Hoy Work Phone: [facility] DO Work Phone: 09-27-2022 10:04-0500 Heart rate 60 /min Sergio Jf Hoy Work Phone: [facility] DO Work Phone: 09-27-2022 10:04-0500 Systolic blood pressure 158 mm[Hg] Sergio M Hoy Work Phone: [facility] DO Work Phone: 03-22-2022 11:03-0400 Diastolic blood pressure 70 mm[Hg] Sergio M Hoy Work Phone: [facility] DO Work Phone: 03-22-2022 11:03-0400 Systolic blood pressure 128 mm[Hg] Sergio M Hoy Work Phone: [facility] DO Work Phone: 03-22-2022 10:58-0400 Body height 172.72 cm Sergio M Hoy Work Phone: [facility] DO Work Phone: 03-22-2022 10:58-0400 Body mass index (BMI) [Ratio] 26.61 kg/m2 Sergio M Hoy Work Phone: [facility] DO Work Phone: 03-22-2022 10:58-0400 Body surface area Derived from formula 1.93 m2 Sergio M Hoy Work Phone: [facility] DO Work Phone: 03-22-2022 10:58-0400 Body weight 79.38 kg Sergio M Hoy Work Phone: [facility] DO Work Phone: 03-22-2022 10:58-0400 Diastolic blood pressure 98 mm[Hg] Sergio M Hoy Work Phone: [facility] DO Work Phone: 03-22-2022 10:58-0400 Heart rate 54 /min Sergio M Hoy Work Phone: [facility] DO Work Phone: 03-22-2022 10:58-0400 Systolic blood pressure 133 mm[Hg] Sergio M Hoy Work Phone: [facility] DO Work Phone: 12-14-2021 12:17-0500 Body height 172.72 cm Sergio M Hoy Work Phone: [facility] DO Work Phone: 12-14-2021 12:17-0500 Body mass index (BMI) [Ratio] 26.91 kg/m2 Sergio Jf Hoy Work Phone: [facility] DO Work Phone: 12-14-2021 12:17-0500 Body surface area Derived from formula 1.94 m2 Sergio Jf Hoy Work Phone: [facility] DO Work Phone: 12-14-2021 12:17-0500 Body weight 80.29 kg Sergio M Hoy Work Phone: [facility] DO Work Phone: 12-14-2021 12:17-0500 Diastolic blood pressure 72 mm[Hg] Sergio Jf Hoy Work Phone: [facility] DO Work Phone: 12-14-2021 12:17-0500 Heart rate 53 /min Sergio Jf Hoy Work Phone: [facility] DO Work Phone: 12-14-2021 12:17-0500 Systolic blood pressure 138 mm[Hg] Sergio Jf Hoy Work Phone: [facility] DO Work Phone: 12-07-2021 15:24-0500 65 1 Renu Kamlesh DO Work Phone: [facility] DO Work Phone: Comment on above: [id number] Encounters Encounter Date Encounter Type Care Provider Facility Start: 04-02-2025 End: 04-02-2025 ambulatory [facility] Start: 04-03-2024 End: 04-03-2024 Office outpatient visit 25 minutes Renu Whitlock DO Work Phone: [facility] Comment on above: ASHD (arteriosclerot ic heart disease); Status post insertion of drug eluting coronary artery stent; Current smoker; BMI 26.0-26.9,adult; Statin intolerance; Mixed hyperlipidemia Start: 11-27-2022 Rx Renewal Sergio Vuongy Work Phone: [facility] DO Work Phone: Start: 10-03-2022 End: 10-04-[address] RENU WHITLOCK Facility:[facility]1 Start: 09-27-2022 Office outpatient vi sit 25 minutes Sergio Rhoades Hoy Work Phone: [facility] DO Work Phone: Start: 09-27-[address] Renu Whitlock Facility: Start: 03-22-[address] Renu Whitlock Facility: Start: 03-22-2022 Office outpatient vi sit 25 minutes Sergio M Hoy Work Phone: [facility] DO Work Phone: Start: 02-13-2022 End: 02-14-2022 ambulatory QAMAR MURPHY Facility:[facility]1 Start: 01-17-2022 Telephone encounter Sergio M Hoy Work Phone: [facility] DO Work Phone: Start: 01-16-2022 Chart Update Sergio Rhoades Hoy Work Phone: [facility] DO Work Phone: Start: 12-29-2021 End: 12-30-[address] SERGIO BARRIENTOS Facility:[facility] Start: 12-23-2021 Telephone encounter Sergio Jf Hoy Work Phone: [facility] DO Work Phone: Start: 12-20-2021 End: 12-21-[address] DOCTOR FLORES Facility:[facility]1 Start: 12-20-2021 Telephone encounter Sergio Jf Hoy Work Phone: [facility] DO Work Phone: Start: 12-14-2021 Transitional care isaias jimenez srvc 7 day discharge Sergio Barrientos Work Phone: [facility] DO Work Phone: Start: 12-14-[address] Renu Whitlock Facility: Start: 12-07-2021 Chart Update Renu enamorado DO Work Phone: [facility] DO Work Phone: Start: 12-07-2021 ambulatory Sergio Barrientos Fac ility:[id number] Start: 12-06-[address] Renu Whitlock Facility:[id number] Start: 12-06-[address] Renu Whitlock Fac ility:[facility] Start: 12-06-2021 End: 12-07-2021 Evaluation and management of inpatient Sergio Barrientos Facility:[facility] Start: 12-06-2021 End: 12-06-[address] SERGIO BARRIENTOS Facility:[facility]1 Start: 12-06-[address] Renu Whitlock Facility:[id number] Echocardiogram normal Sergio Rhoades Iliana Work Phone: [facility] DO Work Phone: Procedures Date Procedure Procedure Detail Performing Clinician Start: 12-28-2023 History of placement of stent for coronary artery disease Status post insertion of drug eluting coronary artery stent Renu Whitlock DO Work Phone: Hernia repair Sergio Jf Iliana Work Phone: History of placement of stent for coronary artery disease Status post insertion of drug eluting coronary artery stent Sergio Jf Iliana Work Phone: History of placement of stent for coronary artery disease Status post insertion of drug eluting coronary artery stent Renu Whitlock DO Work Phone: Plan of Treatment Date Care Activity Detail Author Start: 04-02-2025 End: 04-02-2025 Patient encounter procedure 04/02/2025 10:50 AM EDT Office Visit [address] [id number] Renu Whitlock S, DO [address] [facility] [address] [place], [place] [id number] [facility] Start: 07-13-2024 Influenza vaccination Influenz a Vaccine (Season Ended) [facility] Start: 04-03-2024 End: 04-03-2025 Lipid 1996 panel - Serum or Plasma Lipid Panel Lab Routine ASHD (arteriosclerotic heart disease) Mixed hyperlipidemia Expected: 04/03/2024 (Approximate), Expires: 04/03/2025 [facility] Service Area Work Phone: Comment on above: Expected: 04/03/2024 (Approximate), Expires: 04/03/2025 Start: 07-13-2023 COVID-19 Vaccine ( season) COVID-19 Vaccine ( season) [facility] Start: 04-03-2023 FUV, Provider: Renu Whitlock, Status: Pen, Time: 10:40 AM FUV, Provider: Renu Whitlock, Status: Pen, Time: 10:40 AM [facility] 250 DO Work Phone: Start: 09-27-2022 FUV, Provider: Renu Whitlock, Status: Pen, Time: 9:20 AM FUV, Provider: Renu Whitlock, Status: Pen, Time: 9:20 AM [facility] 250 DO Work Phone: Start: 03-22-2022 FUV, Provider: Renu Whitlock, Status: Pen, Time: 10:40 AM FUV, Provider: Renu Whitlock, Status: Pen, Time: 10:40 AM [facility] 250 DO Work Phone: Start: 01-11-2022 STRESS MELISSA, Provider : DEVAN [facility]VI NUCLEAR 01,[id number], Status: Pen, Time: 2:00 PM STRESS MELISSA, Provider: DEVAN [facility] NUCLEAR 01,[id number], Status: Pen, Time: 2:00 PM [facility] Work [facility]: Start: 12-14-2021 FUVHOSP, Provider: Qamar Haq, Status: Pen, Time: 12:00 PM FUVHOSP, Provider: Qamar Miramontes, Status: Pen, Time: 12:00 PM [facility] 250 DO Work Phone: Start: 09-03-2021 Pneumococcal Vaccine : 65+ Years (2 of 2 - PCV) Pneumococcal Vaccine: 65+ Years (2 of 2 - PCV) [facility] Start: 2021 Abdominal aortic aneurysm screening Abdominal Aortic Aneurysm (AAA) Screening [facility] Start: 2016 RSV patient s and/or patients aged 60+ years (1 - 1-dose 60+ series) RSV patients and/or patients aged 60+ years (1 - 1-dose 60+ series) [facility] Start: 2006 Zoster Vaccines (1 o f 2) Zoster Vaccines (1 of 2) [facility] Start: 1978 DTaP/Tdap/Td Vaccine s (1 - Tdap) DTaP/Tdap/Td Vaccines (1 - Tdap) [facility] Start: 1974 Diabetes mellitus screening Diabetes Screening [facility] Start: 1974 Hepatitis C screening Hepatitis C [facility] Start: 1956 Lipid panel Lipid Panel [facility] Start: 1956 Medicare Annual Wellness Visit Medicare Annual Wellness Visit (AWV) [facility] Start: 1956 Screening for malign ant neoplasm of colon [facility] Immunizations Immunization Date Immunization Notes Care Provider Fa mary 09-03-2020 pneumococcal polysaccharide vaccine, 23 valent Sergio Barrientos [facility] Work Phone: Payers Date Payer Category Payer Medicare ANTHEM MEDICARE ANTHEM MEDICARE ADVANTAGE [id number] 2023-Present P [id number] [place] [address] [id number] 2021 Medicare [id number] 2021 Self-pay 1959 Unknown [id number] 1956 Unknown [id number] 1956 Unknown [id number] 1956 Unknown [id number] 1956 Unknown [id number] 1956 Unknown [id number] 1956 Unknown [id number] 1956 Unknown [id number] 1956 Unknown [id number] 1956 Unknown [id number] 1956 Unknown [id number] 1956 Unknown [id number] 1956 Unknown [id number] 1956 Unknown [id number] 4 Unknown Unknown [id number] Social History Date Type Detail Facility Start: 04-03-2024 Daily caffeine consumption Daily caffeine consumption -[facility] DO Work Phone: Comment on above: 1 CUP A DAY; LESS THAN A PACK, [place] BY DAY; 2 cup daily; couple packs daily; Start: 04-03-2024 [facility] History of tobacco use Cigarette Smoker [facility] Work Phone: Start: 04-03-2024 Tobacco use and exposure Smokeless tobacco non-user [facility] Work Phone: Start: 04-03-2024 Alcoholic beverage intake Current drinker of alcohol (finding) [facility] Work Phone: Start: 04-03-2024 [facility] Work Phone: Start: 04-03-2024 Alcohol Comment social [facility] Work Phone: Start: 1955 Sex assigned at Not on file [facility] Work Phone: Start: 03-24-2024 End: 04-03-2024 Exposure to SARS-CoV-2 (event) Not sure [facility] History of Present illness Narrative 04-03-2024 Renu Whitlock, DO - 04/03/2024 10:20 AM EDT Note Date & Type Note Facility 04-03-2024 History of Present illness Narrative Subjective Zacarias Evans is a 69 y.o. male Chief Complaint Follow-up 69-year-old gentleman returns for annual follow-up he is doing well he denies any cardiovascular events, nitrate usage, hospitalizations. He is routinely taking care of his yard on a riding mower and weed whacking the parameter around over 2 acres without any symptomatology. He is intolerant to statins, did not like Zetia and therefore discontinued it. He has ongoing tobacco abuse approximately 2 packs daily, refuses to quit we took 10 minutes of our time to deputy general counsel him on tobacco cessation and its importance He has a history of ASHD with CT status post inferoposterior STEMI in November 2021 with primary revascularization of the circumflex. He has underlying hyperlipidemia, hypertension and tobacco use and he is intolerant to statins. Recommendations: Extensive counseling on tobacco cessation, lipid management. Will obtain another lipid panel consider prescribing Repatha which we discussed at length today, tobacco cessation if at all possible, follow-up in 1 year Review of Systems All other systems reviewed and are negative. Vitals: 04/03/24 1031 BP: 122/64 BP Location: Right arm Patient Position: Sitting Pulse: 58 Weight: 78.5 kg (173 lb) Height: 1.727 m (5' 8 ) Objective Physical Exam Constitutional: Appearance: Normal appearance. HENT: Nose: Nose normal. Neck: Vascular: No carotid bruit. Cardiovascular: Rate and Rhythm: Normal rate. Pulses: Normal pulses. Heart sounds: Normal heart [...] Judgment: Judgment normal. Allergies Penicillins, Atorvastatin, and Xhtcgli-xwd-krw reductase inhibitors Current Medications Current Outpatient Medications: aspirin 81 mg chewable tablet, Chew 1 tablet (81 mg) once daily., Disp: , Rfl: cetirizine (ZyrTEC) 10 mg capsule, Take 1 capsule (10 mg) by mouth 2 times a day., Disp: , Rfl: fluticasone propionat,microniz (FLUTICASONE PROP, MICRO, BULK, MISC), 1 puff once daily., Disp: , Rfl: metoprolol tartrate (Lopressor) 25 mg tablet, Take 1 tablet (25 mg) by mouth 2 times a day., Disp: , Rfl: nitroglycerin (Nitrostat) 0.4 mg SL tablet, Place 1 tablet (0.4 mg) under the tongue every 5 minutes if needed., Disp: , Rfl: Assessment/Plan 1. ASHD (arteriosclerotic heart disease) 2. Status post insertion of drug eluting coronary artery stent 3. Current smoker 4. BMI 26.0-26.9,adult 5. Statin intolerance Scribe Attestation By signing my name below, ISelene Ashly JOHNibsavage attest that this documentation has been prepared under the direction and in the presence of Renu Whitlock DO. Provider Attestation - Scribe documentation All medical record entries made by the Scribe were at my direction and personally dictated by me. I have reviewed the chart and agree that the record accurately reflects my personal performance of the history, physical exam, discussion and plan. documented in this encounter [facility] Work Phone: Instructions 04-03-2024 Patient Instructions Note Date & Type Note Facility 04-03-2024 Instructions Lupis Rosario LPN - 04/03/2024 10:20 AM EDT Please bring all medicines, vitamins, and herbal supplements with you when you come to the office. Prescriptions will not be filled unless you are compliant with your follow up appointments or have a follow up appointment scheduled as per instruction of your physician. Refills should be requested at the time of your visit. Fall Prevention Education Given documented in this encounter [facility] Work Phone: History of Present illness Narrative 12-06-2021 Note Date & Type Note Facility 12-06-2021 History of Present illness Narrative Dec 06, 2021 transfer from [facility] with STEMI; managed emergently with Dr. Whitlock with PCI. LVEF normal. All medications were new.Presents today ambulatory with steady gait, accompanied by .Right groin cath site has healed without adverse sequelae .He has been compliant with meds.Brilinta - no dyspnea, affordableLipitor - no myalgiaIs retired.Willing to go to cardiac rehabPrior to STEMI - really cant identify any symptoms or change in exercise tolerance.The patient states he has been generally stable since the last visit. Comorbid Illnesses: hypertension and hyperlipidemia.Symptoms: denies chest pain at rest, resolved exertional chest pain, denies dyspnea, denies fatigue, denies exercise intolerance, denies palpitations, denies edema, denies orthopnea, denies dizziness and denies orthostatic dizziness.Associated symptoms: no syncope.His symptoms do not limit his activities.Disease Monitoring: The patient has had a stable weight. -[facility] DO Work Phone: History of Present illness Narrative 12-06-2021 Note Date & Type Note Facility 12-06-2021 History of Present illness Narrative Dec 06, 2021 transfer from [facility] with STEMI; managed emergently with Dr. Whitlock with PCI. LVEF normal. All medications were new.Presents today ambulatory with steady gait, accompanied by .Right groin cath site has healed without adverse sequelae .He has been compliant with meds.Brilinta - no dyspnea, affordableLipitor - no myalgiaIs retired.Willing to go to cardiac rehabPrior to STEMI - really cant identify any symptoms or change in exercise tolerance.The patient states he has been generally stable since the last visit. Comorbid Illnesses: hypertension and hyperlipidemia.Symptoms: denies chest pain at rest, resolved exertional chest pain, denies dyspnea, denies fatigue, denies exercise intolerance, denies palpitations, denies edema, denies orthopnea, denies dizziness and denies orthostatic dizziness.Associated symptoms: no syncope.His symptoms do not limit his activities.Disease Monitoring: The patient has had a stable weight. [facility] Work Phone: Evaluation note Note Date & Type Note Facility Evaluation note Diagnosis ASHD (arteriosclerotic heart disease) Coronary atherosclerosis of unspecified type of vessel, [place] or graft Status post insertion of drug eluting coronary artery stent Current smoker BMI 26.0-26.9,adult Statin intolerance Mixed hyperlipidemia documented in this encounter [facility] Work Phone: Reason for referral (narrative) Consultation (Routine) - Authorized Note Date & Type Note Facility Reason for referral (narrati ve) Specialty Diagnoses / Procedures Referred By Contalberto t Referred To Contact Cardiology Diagnoses ASHD (arteriosclerotic heart disease) Procedures Follow Up In Cardiology Renu Whitlock, [address] [facility], [address] [place] [address] Renu Whitlock DO [address] [facility], [facility] [address] [place] [address] Referral ID Status Reason Start Date Expiration Date V isits Requested Visits Authorized [id number] Authorized 04/03/2024 04/03/2025 1 1 T [facility] Work Phone: Chief Complaint I seem to be doing ok I seem to be doing ok * ZACARIAS EVANS is being seen for a 3 month follow-up of. * Patient is a 67-year-old gentleman returns for 4-month follow-up following recent inferolateral STEMI treated with primary PCI of the circumflex with preserved left ventricular function and no other significant angiographic disease. His original CT was November 2021. His only symptoms currently are r outine morning associated nausea with medications. He believes it is related to his aspirin. He hasongoing tobacco use and presumed COPD. He has been smoking for over 50 years. * He is intolerant to statins at least high-dose statins and took himself off atorvastatin * Recommendations: Trial of low-dose rosuvastatin 5 mg daily, switch his aspirin to evening dose see if that makes a difference, will follow-up in 6 months, smoking cessation counseling for 3 minutes today. * ZACARIAS EVANS is being seen for a 6 month follow-up of. * 67-year-old gentleman returns for follow-up and doing well he has no cardiovascular complaints or angina or nitrate usage or repeat hospitalizations. He sustained a inferoposterior CT in November 2021with primary revascularization of the circumflex with normal left ventricular function. * He is intolerant to statins and he stopped his low-dose rosuvastatin this past year. He continues smoking 1 to 2 packs cigarettes daily we have counseled him extensively for over 5 minutes today on smoking cessation. He has underlying accelerated hypertension but blood pressure came down very nicely to 138/64 on my exam * Brilinta unfortunate is not affordable for him therefore we will switch out for Plavix, will also obtain another lipid panel off statins, consider PCSK29 inhibitor therapy in the future we will follow-up in 6 months * ZACARIAS EVANS is being seen for a 6 month follow-up of. * 67-year-old gentleman returns for follow-up and doing well he has no cardiovascular complaints or angina or nitrate usage or repeat hospitalizations. He sustained a inferoposterior CT in November 2021with primary revascularization of the circumflex with normal left ventricular function. * He is intolerant to statins and he stopped his low-dose rosuvastatin this past year. He continues smoking 1 to 2 packs cigarettes daily we have counseled him extensively for over 5 minutes today on smoking cessation. He has underlying accelerated hypertension but blood pressure came down very nicely to 138/64 on my exam * Silke amayaunate is not affordable for him therefore we will switch out for Plavix, will also obtain another lipid panel off statins, consider PCSK29 inhibitor therapy in the future we will follow-up in 6 months Family History No Family History Records FoundUnknown Family Member Name Dates Details Family history of malignant neoplasm: Mother, Father(V16.9, Z80.9) Status:Active Unknown Family Member Name Dates Details Family history of malignant neoplasm: Mother, Father(V16.9, Z80.9) Status:Active Unknown Family Member Name Dates Details Family history of malignant neoplasm: Mother, Father(V16.9, Z80.9) Status:Active Unknown Family Member Name Dates Details Family history of malignant neoplasm: Mother, Father(V16.9, Z80.9) Status:Active Unknown Family Member Name Dates Details Family history of malignant neoplasm: Mother, Father(V16.9, Z80.9) Status:Active Unknown Family Member Name Dates Details Family history of malignant neoplasm: Mother, Father(V16.9, Z80.9) Status:Active Unknown Family Member Name Dates Details Family history of malignant neoplasm: Mother, Father(V16.9, Z80.9) Status:Active Unknown Family Member Name Dates Details Family history of malignant neoplasm: Mother, Father(V16.9, Z80.9) Status:Active Unknown Family Member Name Dates Details Family history of malignant neoplasm: Mother, Father(V16.9, Z80.9) Status:Active Summary Purpose Advance Directives No Advanced Directives Records FoundNo Advanced Directives Records FoundNo Advanced Directives Records FoundNo Advanced Directives Records FoundNo Advanced Directives Records FoundNo Advanced Directives Records Found Additional Source Comments (unrecognized sect ion and content) No Status Records FoundNo Status Records FoundNo Status Records FoundNo Status Records FoundNo Status Records FoundNo Status Records Found INFORMATION SOURCE (unrecogn ized section and content) DATE CREATED AUTHOR 01/13/2022 [facility] DATE CREATED AUTHOR AUTHOR'S ORGANIZ ATION 09/28/2022 [facility] DATE CREATED AUTHOR AUTHOR'S ORGANIZ ATION 09/28/2022 [employer] DATE CREATED AUTHOR AUTHOR'S ORGANIZ ATION 10/09/2022 [facility] DATE CREATED AUTHOR AUTHOR'S ORGANIZ ATION 12/16/2022 [facility] DATE CREATED AUTHOR AUTHOR'S ORGANIZ ATION 04/09/2025 [facility]ulatory Reason for Visit (unrecogniz ed section and content) Reason Comments Follow-up 1yr Care Teams (unrecognized sec tion and content) [address] Relationship Specialty Start Date End Date Sergio Barrientos MD [address] [place] [address] PCP - General 12/14/21 FOR RECORDS PERTAINING TO PATIENTS WHO ARE OR HAVE BEEN ENROLLED IN A CHEMICAL DEPENDENCY/SUBSTANCEABUSE PROGRAM, SOME INFORMATION MAY BE OMITTED. This clinical summary was aggregated from multiple sources. Caution should be exercised in using it in the provision of clinical care. This summary normalizes information from multiple sources, and as a consequence, information in this document may materially change the coding, format and clinical context of patient data. In addition, data may be omitted in some cases. CLINICAL DECISIONS SHOULD BE BASED ON THE PRIMARY CLINICAL RECORDS. [facility] [employer] [facility]. provides no warranty or guarantee of the accuracy or completeness of information in this document.
== END 2025-04-10 09:56 | disposition home or self-care (01) ==
LOC: CT 09:55
PROVIDERS: PCP Family Medicine; Visit Provider Family Medicine
DX: R22.1 Localized swelling, mass and lump, neck (principal); Z87.891 Personal history of nicotine dependence; J44.9 Chronic obstructive pulmonary disease, unspecified
CPT/HCPCS: 71271; 93880

== ENCOUNTER 2025-05-25 12:58 | Outpatient (OUT) | payer MEDICARE, SELFPAY ==
--- OUTSIDE RECORDS SUMMARY | 2025-04-19 10:43 | XMS_ITS ---
Author Organization The [facility] in [place] Address [address] [place] [address] Care Team Providers Care Bus Assistant Name Role Phone Gael Barrientos Primary Care Provider [phone] REASON FOR VISIT Carotid- repeat Encounters Encounter Location Date Provider Diagnosis [facility] [address] [place] [address] 04/19/2025 Gael Barrientos Plan Of Treatment No Information Progress Notes * Zacarias EVANS GDOB:07/1955 (70 yo M)Acc No.[id number]:04/19/2025 Patient: Kayden SERRAZacarias CLARK :1955 A ge:70 Y S ex:Male Address:[address] [place] [phone] * true * Date: Generated for Mihir parker/Juan/eTransmitting on: 05/25/2025 12:59 PM EDT
--- OUTSIDE RECORDS SUMMARY | 2025-05-01 06:14 | XMS_ITS ---
Author Organization The [facility] in [place] Address [address] [place] [address] Care Team Providers Care Senior Marketing Analyst Name Role Phone Iliana Gael Primary Care Provider [phone] Reason For Referral Diagnosis 1 Neck mass (R22.1) Referral Organization [facility] Referring Provider First Name Gael Referring Provider Last Name Iliana Referring Provider Speciality Family Med icine Referred Provider Mayte Pulido Referred Provider Specialty Otolaryngolo gy Referral Priority Routine REASON FOR VISIT ent referral- LMTCB Encounters Encounter Location Date Provider Diagnosis [facility] [address] [place] [address] 05/01/2025 Gael Barrientos Neck mass R22.1 Assessments Encounter Date Diagnosis (ICD Code) Assessment Notes Treatment Notes Treatment Clinical Notes Section Notes 05/01/2025 Neck mass (ICD-10 - R22.1) Plan Of Treatment Referrals Referral Date Details 05/01/2025 05/01/2025, Mayte glover Progress Notes * Zacarias EVANS GDOB:07/1955 (70 yo M)Acc No.[id number]:05/01/2025 Patient: Kayden CHURCHILLZacarias :1955 A ge:70 Y S ex:Male Address:[address] [place] [phone] Subjective: * Chief Complaints: * e nt referral- LMTCB * Medical History: * Surgical History: * Hospitalization/Major Diagno stic Procedure: * Medications: Objective: * Vitals: * Physical Examination: Assessment: * Assessment: 1. N walter mass - R22.1 (Primary) Plan: * Treatment: * Procedure Codes: * true * Date: Generated for Mihir parker/Juan/Celio on: 0 05/25/2025 01:01 PM EDT Consultation Request Notes Referral Date Referring Provider Referred Provider Not es 05/01/2025 Gael Barrientos Hilary
--- OUTSIDE RECORDS SUMMARY | 2025-05-03 11:14 | XMS_ITS ---
Author Organization The [facility] in [place] Address [address] [place] [address] Care Team Providers Care Scanning Clerk Name Role Phone Gael Barrientos Primary Care Provider REASON FOR VISIT Parotid mass Encounters Encounter Location Date Provider Diagnosis [facility] [address] [place] [address] 05/03/2025 Gael Barrientos Plan Of Treatment No Information Progress Notes * Zacarias EVANS GDOB:07/1955 (70 yo M)Acc No.[id number]:05/03/2025 Patient: Kayden WOLFZacarias RANKIN :1955 A ge:70 Y S ex:Male Address:[address] [place] [phone] * true * Date: Generated for Mihir parker/Juan/eTransmitting on: 05/25/2025 01:00 PM EDT
--- OUTSIDE RECORDS SUMMARY | 2025-05-25 13:01 | XMS_ITS | Patient Health Record ---
Author Organization The [facility] in [place] Address [address] [place] [address] Care Team Providers Care Borough Coordinator Name Role Phone Gael Marinelli Primary Care Provider Allergies Allergen (clinical drug ingredient) Drug/Non Drug Allergy documented on EMR Reaction Allergy Type Onset Date Status amoxicillin Amoxicillin anaphylaxis Drug Allergy A ctive Results Component Value Reference Range Notes FREE T3 Reviewed date:04/07/2025 03:56:10 PM Interpretation: Performing Lab: Notes/Report: [facility] , Free T3 2.90 2.18-3.98 pg/mL Performing Lab: see note ML - [facility] LB GLYCOHEMOGLOBIN A1C Reviewed date:04/07/2025 03:56:10 PM Interpretation: Performing Lab: Notes/Report: [facility] , Glycohemoglobin A1C 6.1 4.5-6.2 % ADA RECOMMENDED LIMIT 4.0 - 6.0 ADA THERAPEUTIC TARGET < 7.0 ACTION SUGGESTED > 7.0 Estimated Average Glucose 128 Performing Lab: see note ML - [facility] LB LIPID PROFILE Reviewed date:04/07/2025 03:56:10 PM Interpretation: Performing Lab: Notes/Report: [facility] , Triglycerides 149 <=150 mg/dL Cholesterol 207 <=200 mg/dL HDL Cholesterol 37 40-60 mg/dL > or =60 mg/dl - LOW CARDIOVASCULAR RISK <40 mg/dl - HIGH CARDIOVASCULAR RISK LDL Cholesterol Calculated 141.0 <100 mg/dl OPTIMAL 100-129 mg/dl NEAR OR ABOVE OPTIMAL 130-159 mg/dl BORDERLINE HIGH 160-189 mg/dl HIGH >190 mg/dl VERY HIGH VLDL CHOLESTEROL 29.8 Chol HDL Ratio 5.6 3.3 - 4.4 LOW RISK 4.4 - 7.1 AVERAGE RISK 7.1 - 11.0 MODERATE RISK >11.0 HIGH RISK Performing Lab: see note [facility] LB PROF 14(COMP METB) Reviewed date:04/07/2025 03:56:10 PM Interpretation: Performing Lab: Notes/Report: [facility] , Sodium 141 136-145 mmol/L Potassium 4.2 3.5-5.1 mmol/L Chloride 103 98-107 mmol/L Carbon Dioxide 28.6 21.0-32.0 mmol/L Anion Gap 13.6 Glucose 106 74-106 mg/dL Blood Urea Nitrogen 20.0 7.0-18.0 mg/dL Creatinine 0.97 0.70-1.30 mg/dL Estimated GFR ( Melonie >60 >=60 mL/min/1.73m 2 Estimated GFR (Non- Candida >60 >=60 mL/min/1.73m 2 BUN Creatinine Ratio 20.6 Calcium 9.0 8.5-10.1 mg/dL Bilirubin Total 0.6 0.2-1.0 mg/dL Aspartate Amino Transferase 14 15-37 U/L Alanine Aminotransferase 21 16-63 U/L Alkaline Phosphatase 80 46-116 U/L Total Protein 7.4 6.4-8.2 g/dL Albumin Level 3.6 3.4-5.0 g/dL Globulin 3.8 Albumin Globulin Ratio 0.9 Performing Lab: see note - [facility] LB T4 Reviewed date:04/07/2025 03:56:10 PM Interpretation: Performing Lab: Notes/Report: [facility] , T4 Thyroxine 6.90 4.50-12.10 ug/dL Performing Lab: see note - [facility] LB TSH Reviewed date:04/07/2025 03:56:10 PM Interpretation: Performing Lab: Notes/Report: [facility] , Thyroid Stimulating Hormone 1.046 0.358-3.740 uIU/mL Performing Lab: see note - [facility] LB CT lung screening low-dose Reviewed date:04/12/2025 04:43:44 PM Interpretation: Performing Lab: Notes/Report: Source Facility: [facility] [place] [id number] CT Scan Report Signed Patient: NELI EVANS MR#: [id number] : 1955 Acct:[id number] Age/Sex: 70 / M ADM Date: 04/10/25 Loc: CT Attending Dr: Dario Marinelli M.D. Ordering Physician: Dario Marinelli M.D. Date of Service: 04/10/25 Procedure(s): CT lung screening low-dose Accession Number(s): [id number] cc: Dario Marinelli M.D. [place] [address] Patient Name: NELI EVANS MRN: [id number] date: 1955 Sex: M Assigned Patient Location: CT Current Patient Location: LAB Accession/Order Number: [id number] Exam Date: 04/10/2025 10:47 Report Date: 04/10/2025 10:57 At the request of: DARIO MARINELLI MD Procedure: CT lung screening low-dose LOW-DOSE SCREENING CHEST CT WITHOUT CONTRAST CLINICAL DATA: Current smoker with 60 pack year history of tobacco use COMPARISON: None Spiral axial unenhanced low-dose images were obtained through the chest. Images were reviewed using both narrow and wide window settings. This CT exam was performed using one or more following dose reduction techniques: Automated exposure control, adjustment of the mA and/or kV according to patient size, or use of iterative reconstruction technique. The heart is within normal limits for size. No pericardial effusion is seen. Coronary artery disease is visualized. There is no aortic aneurysm. There is minor plaque at the aortic arch and descending aorta. There are small scattered mediastinal lymph nodes. Benign-appearing axillary lymph nodes are seen. There is minor gynecomastia. There are tiny endplate spurs. There is minor scarring at the lung apices. There are some airspace lucencies and a few subpleural blebs. There is linear atelectasis and/or scarring of the lower lobes. No additional consolidation, pleural effusion or pneumothorax is identified. There is a 5 mm groundglass nodular density within the right lower lobe (axial image 111). No other nodularity is seen. Limited cuts through the upper abdomen show no contributory findings. CT/CT lung screening low-dose IMPRESSION: OBSTRUCTIVE LUNG DISEASE WITH MINOR SCARRING AND POSSIBLE ATELECTASIS. TINY RIGHT LOWER LOBE NODULE. Lung RADS category 2 - benign Twelve-month low-dose CT follow-up suggested Impression dictated by: Samantha Fontana M.D. 04/10/2025 10:57 AM Dictation Location: [place] [address] Electronically authenticated by: [id number] Y Date: 04/10/2025 10:57 Dictated By: Samantha Fontana M.D. Signed By: 04/10/25 1100 DD/ 1057 TD/TT: Dynam[facility]: [place] [address] CT Scan Report Signed Patient: NELI EVANS MR#: [id number] : 1955 Acct:[id number] Age/Sex: 70 / M ADM Date: 04/10/25 Loc: CT Attending Dr: Flora Marinelli M.D. Ordering Physician: Dario Marinelli M.D. Date of Service: 04/10/25 Procedure(s): CT nadine kathleen screening low-dose Accession Number(s): [id number] cc: Dario Marinelli M.D. [place] [address] Patient Name: NELI EVANS MRN: [facility]:[id number] date: 1955 Sex: M Assigned Patient Location: CT Current Patient Location: LAB Accession/Order Number: [id number] Exam Date: 04/10/2025 10:47 Report Date: 04/10/2025 10:57 At the request of: DARIO MARINELLI MD Procedure: CT lung screening low-dose LOW-DOSE SCREENING CHEST CT WITHOUT CONTRAST CLINICAL DATA: Curre nt smoker with 60 pack year history of tobacco use COMPARISON: None Spiral axial unenhanced low-dose images were obtained through the chest. Images were reviewed using both narrow and wide window settings. This CT exam was performed using one or more following dose reduction techniques: Automated exposure control, adjustment of the mA and/or kV according to patient size, or use of iterative reconstruction technique. The heart is within normal limits for size. No pericardial effusion is seen. Coronary artery disease is visualized. There is no aortic aneurysm. There is minor plaque at the aortic arch and descending aorta. There are small scattered mediastina l lymph nodes. Benign-appearing axillary lymph nodes are seen. There is minor gynecomastia. There are tiny endplate spurs. There is minor scarring at the lung apices. There are some airspace lucencies and a few subpleural blebs. There is linear atelectasis and/or scarring of the lower lobes. No additional consolidation, pleural effusion or pneumothorax is identified. There is a 5 mm groundglass nodular density within the right low er lobe (axial image 111). No other nodularity is seen. Limited cuts through the upper abdomen show no contributory findings. CT/CT lung screening low-dose IMPRESSION: OBSTRUCTIVE LUNG DISEASE WITH MINOR SCARRING AND POSSIBLE ATELECTASIS. TINY RIGHT LOWER LOB E NODULE. Lung RADS category 2 - benign Twelve-month low-dos e CT follow-up suggested Impression dictated by: Samantha Fontana M.D. 04/10/2025 10:57 AM Dictation Location: [place] [address] Electronically authenticated by: [id number] Y Date: 04/10/2025 10:57 Dictated By: Samantha Fontana M.D. Signed By: 04/10/25 1100 DD/ 1057 TD/TT: [employer]: CBC AUTO DIFF Reviewed date:04/07/2025 03:56:10 PM Interpretation: Performing Lab: Notes/Report: [facility] , White Blood Count 9.8 4.0-11.0 10 3/uL Red Blood Count 5.05 4.70-6.10 10 6/uL Hemoglobin 14.9 14.0-18.0 g/dL Hematocrit 44.4 42.0-54.0 % Mean Corpuscular Volume 87.9 80.0-94.0 fL Mean Corpuscular Hemoglobin 29.5 25.9-34.0 pg Mean Corpuscular HGB Conc 33.6 29.9-35.2 g/dL Red Cell Distribution Width 13.8 11.0-15.0 % Platelet Count 204 150-450 10 3/uL Mean Platelet Volume 9.6 9.5-13.5 fL Neutrophils Percent Auto 66.6 43.0-75.0 % Lymphocytes Percent Auto 22.1 20.5-60.0 % Monocytes Percent Auto 9.0 1.7-12.0 % Eosinophils Percent Auto 1.3 0.9-7.0 % Basophils Percent Auto 0.5 0.2-2.0 % Immature Granulocytes Pct Auto 0.5 0.0-0.5 % Neutrophils Absolute Auto 6.6 1.4-6.5 10 3/uL Lymphocytes Absolute Auto 2.2 1.2-3.8 10 3/uL Monocytes Absolute Auto 0.9 0.3-0.8 10 3/uL Eosinophils Absolute Auto 0.1 0.0-0.7 10 3/uL Basophils Absolute Auto 0.1 0.0-0.1 10 3/uL Immature Granulocytes Abs Auto 0.05 0.00-0.03 10 3/uL Performing Lab: see note ML - [facility] LB PSA SCREENING Reviewed date:04/07/2025 03:56:10 PM Interpretation: Performing Lab: Notes/Report: [facility] , Prostate Specific Antigen Scrn 1.11 <=4.00 ng/mL Performing Lab: see note ML - [facility] LB Reason For Referral Diagnosis 1 Neck mass (R22.1) Referral Organization [facility] Referring Provider First Name Gael Referring Provider Last Name Yevgeniyduke Referring Provider Speciality [facility] Referred Provider Mayte Pulido Referred Provider Specialty Otolaryngolo gy Referral Priority Routine Medications Medication SIG (Take, Route, Frequency, Duration) [...] Status W/U Status Risk Notes Problem Hypertension (89572546) Hypertension (I10) Active confirmed Problem Coronary artery disease (21061268) CAD (coronary artery disease) (I25.10) Active confirmed Problem Dog bite (862573828) Dog bite (W54.0XXA) Active confirmed Problem Tobacco use and exposure (930030865) Current tobacco use (Z72.0) Active confirmed Vital Signs Blood pressure diastolic 72 mm Hg 04/03/2025 Height 68 in 04/03/2025 Blood pressure systolic 160 mm Hg 04/03/2025 Weight 172.4 lbs 04/03/2025 BMI 26.21 kg/m2 04/03/2025 Procedures Procedure Date Ordered Date Performed Result Body Sit e VASC US CAROTID ARTERY DUPLEX BILATERAL 04/03/2025 N/A Encounters Encounter Location Date Provider Diagnosis [facility] [address] [place] [address] 04/07/2025 Gael Marinelli [facility] [address] [place] [address] 04/12/2025 Gael Marinelli [facility] [address] [place] [address] 04/16/2025 Gael Marinelli [facility] [address] [place] [address] 04/19/2025 Gael Marinelli [facility] [place] [facility] [address] [place] [address] 05/01/2025 Gael Marinelli Neck mass R22.1 [facility] [address] [place] [address] 05/03/2025 Gael Marinelli [facility] [address] [place] [address] 04/03/2025 Gael Marinelli Neck mass R22.1 ; Hypertension I10 and CAD (coronary artery disease) I25.10 Assessments Encounter Date Diagnosis (ICD Code) Assessment Notes Treatment Notes Treatment Clinical Notes Section Notes 04/03/2025 Neck mass (ICD-10 - R22.1) 04/03/2025 Hypertension (ICD-10 - I10) 05/01/2025 Neck mass (ICD-10 - R22.1) 04/03/2025 CAD (coronary artery disease) (ICD-10 - I25.10) Plan Of Treatment Pending Test Test Name Order Date HEMOGLOBIN A1C (GLYCO) 04/03/2025 LIPID PANEL (CHOL/TRIG/HDL/LDL) 04/03/20 THYROID PANEL (T4/TSH/FREE T3) PSA, SCREENING 04/03/2025 [...] Date [employer] MED[employer]ARE ADV PLAN [address] [place] [address] [id number] Neli Cordero Self - patient is the insured 4 Medical (General) History Medical History History ICD Code IN, old I25.2 Surgical History Surgery Date(Month/Year) hernia surgery stents 2021 Hospitalization History Reason Date(Month/Year) see above
--- OUTSIDE RECORDS SUMMARY | 2025-05-25 13:01 | XMS_ITS | Clinical Summary ---
Author Organization [facility] Address [address] [place] [address] Phone Care Team Providers Care Oil Well Service Unit Operator Name Role Phone Dario Barrientos MD Primary Care Provider [phone] Allergies Active Allergy Reactions Criticality Noted Date Comments Atorvastatin Nausea/vomiting Medium 12/28/2023 Penicillins Anaphylaxis High 12/28/2023 Wkbccrh-Fkt-Usd Reductase Inhibitors Nausea/vomiting Mediu m 12/28/2023 Medications nitroglycerin (Nitrostat) 0.[address] 1 tablet (0.4 mg) under the tongue every 5 minutes if needed. Active fluticasone propionat,micro katherine (FLUTICASONE PROP, MICRO, BULK, MISC) 1 puff if needed. Active metoprolol succinate XL (Toprol-XL) 25 mg 24 hr tabletIndicatio ns:History of ST elevation myocardial infarction (STEMI),Bradyca rdia, unspecified Take 1 tablet (25 mg) by mouth once daily. Do not crush or chew. 90 tablet 3 5 026 Active aspirin 81 mg EC tabletIndicatio ns:History of ST elevation myocardial infarction (STEMI),ASHD (arteriosclerot ic heart disease) Take 1 tablet (81 mg) by mouth once daily. 90 tablet 3 5 026 Active aspirin 81 mg EC tabletIndicatio ns:History of ST elevation myocardial infarction (STEMI) TAKE 1 TABLET BY MOUTH EVERY DAY 90 tablet 3 4 025 Discontinued Active Problems Problem Noted Date Diagnosed Date Bradycardia, unspecified 04/02/2025 BMI 26.0-26.9,adult 04/03/2024 ASHD (arteriosclerotic heart disease) 12/28/[address] elevation myocardial infarction (S ISIDRO) 12/28/2023 Mixed hyperlipidemia 12/28/2023 Status post insertion of drug eluting coronary a rtery stent 12/28/2023 Current smoker 12/28/2023 Statin intolerance 12/28/2023 Encounters Date Type Department Care Team Description 05/12/2025 Refill [facility] [address] [place] [address] Jhony Whitlock DO History of ST elevation myocardial infarction (STEMI); ASHD (arteriosclerotic heart disease) 04/16/2025 Telephone [facility] [address] [place] [address] Sharmila Whitley LPN Results 04/02/2025 10:50 AM EDT Office Visit [facility] [address] [place] [address] Jhony Whitlock DO ASHD (arteriosclerotic heart [...] on file Sexual Orientation Not on file Last Filed Vital Signs Vital Sign Reading [...] Description 03/31/2026 10:00 AM EDT Office Visit [facility] [address] [facility] [address] [place] [address] Jhony Whitlock, [address] [facility] [address] [place] [address] Health Maintenance Due Date Last Done Comments [...] - 2023-2 5 season) 2024 Influenza Vaccine (#1) 2025 HIB Vaccines Aged Out No longer eligi ble based on patient's age to complete this topic HPV Vaccines (No Doses Required) Completed Hepatitis A Vaccines Aged Out No long [...] MEDICARE ADVANTAGE ANTHEM MEDICARE ADVANTAGE Care Teams Oil Well Service Unit Operator Relationship Specialty Start Date End Date Dario Barrientos MD [address] [facility] [place] [address] PCP - General 12/14/21
--- OUTSIDE RECORDS SUMMARY | 2025-05-25 13:01 | XMS_ITS | Encounter Summary ---
Author Organization [facility] Address [address] [place] [address] Phone Care Team Providers Care Correctional Supervising Cook Name Role Phone Dario Barrientos MD Primary Care Provider [phone] Reason for Visit * Reason Comments Med Refill Encounter Details Date Type Department Care Team (Late st Contact Info) Description 05/12/[address] [address] Jhony Whitlock DO [address] [place] [address] [address] elevation myocardial infarction (STEMI); ASHD (arteriosclerotic heart disease) Social History Tobacco Use Types Packs/Day Years Used Date Smoking Tobacco: Every Day Cigarettes Smokeless Tobacco: Never Alcohol Use Standard Drinks/Week Comments Yes 0 (1 standard drink = 0.6 oz pur e alcohol) social Sex and Gender Information Value Date Recorded Sex Assigned at Not on file Legal Sex Male 2:33 PM EST Gender Identity Not on file Sexual Orientation Not on file documented as of this encounter Plan of Treatment Upcoming Encounters Date Type Department Care Team (Late st Contact Info) Description 03/31/2026 10:00 AM EDT Office Visit [address] [address] Jhony Whitlock DO [address] [place] [address] [address], [address] [id number] documented as of this encounter Visit Diagnoses Diagnosis History of ST elevation myocardial infarction (STEMI) ASHD (arteriosclerotic heart disease) Coronary atherosclerosis of unspecified type of vessel, [place] or graft documented in this encounter Additional Health Concerns Assessment Noted Time A fall risk assessment has been complete d for the patient 04/02/2025 11:35 AM EDT documented as of this encounter Care Teams Correctional Supervising Cook Relationship Specialty Start Date End Date Dario aBrrientos MD [address] [id number] PCP - General 12/14/21 documented as of this encounter
--- NOTE | 2025-05-25 13:08 | CT_ITS ---
The [address] [address] Patient Name: NELI CEDILLO MRN: [id number] date: 1955 Sex: M Assigned Patient Location: LAB Current Patient Location: Accession/Order Number: [id number] Exam Date: 05/26/2025 06:33 Report Date: 05/26/2025 06:48 At the request of: LEONARDO YOON MD Procedure: CT soft tissue neck w con CT SOFT TISSUE NECK WITH CONTRAST CLINICAL DATA: Left-sided neck mass COMPARISON: Carotid ultrasound by 2024 Spiral images were obtained and the neck following 100 mL of Omnipaque 300. This CT exam was performed using one or more following dose reduction techniques: Automated exposure control, adjustment of the mA and/or kV according to patient size, or use of iterative reconstruction technique. No thyroid nodularity is seen. There is a small nodule posterior to the inferior right thyroid lobe. This could be parathyroid in origin. The submandibular and parotid glands are symmetric. Along the posterior inferior aspect of the left parotid gland, there is an enhancing nodular area measuring approximately 11 x 8 x 12 mm in size. This may correlate with the hypoechoic nodule imaged on the carotid ultrasound. This is nonspecific. Lymph nodes node is in the differential however neoplasia cannot be completely excluded. There are several tonsillar calcifications. The epiglottis and vocal cords are within normal limits. Small shotty cervical lymph nodes are present bilaterally. The airway is patent throughout its course. There is no prevertebral soft tissue swelling. Mild degenerative changes are visualized at the cervical spine. There is mild mucosal thickening at the base of the left maxillary sinus. The mastoid air cells are clear. The upper imaged lungs show minor scarring and right subpleural blebs. CT/CT soft tissue neck w con IMPRESSION: SMALL LEFT PAROTID NODULE, DESCRIBED. THIS IS BELIEVED TO CORRELATE WITH NODULE IMAGED ON THE COMPARISON CAROTID ULTRASOUND. CLINICAL CORRELATION IS SUGGESTED. PERCUTANEOUS BIOPSY COULD ALSO BE PERFORMED, WARRANTED. Impression dictated by: Samantha Fontana M.D. 05/26/2025 6:48 AM Dictation Location: [place] [address] Electronically authenticated by: [id number] Y Date: 05/26/2025 06:48
[2025-05-25 13:22] LABS: Estimated GFR (African America >60 (>=60 mL/min/1.73m^2); Estimated GFR (Non-African Ame >60 (>=60 mL/min/1.73m^2)
== END 2025-05-25 12:59 | disposition home or self-care (01) ==
LOC: LAB 12:58
PROVIDERS: PCP Family Medicine; Visit Provider Otolaryngology
DX: R22.1 Localized swelling, mass and lump, neck (principal)
CPT/HCPCS: 36415; 70491; 82565; Q9967

== ENCOUNTER 2025-09-24 09:19 | Outpatient (OUT) | payer MEDICARE, SELFPAY ==
--- OUTSIDE RECORDS SUMMARY | 2025-09-24 09:23 | XMS_ITS | Clinical Summary ---
Author Organization [facility] Address [address] [place] [address] Care Team Providers Care Pedicab Driver Name Role Phone Dario Barrientos MD Primary Care Provider [phone] Allergies Active AllergyReactionsCriticalityNoted VkabEayxtfyzNacmrowapptnHsyfpb63/16/2024 Other Reaction(s): Nausea/vomiting OokzeckvtomAqsvbttnvlrAzxc98/16/2643JixfgdeRsqglp79/16/2024 Other Reaction(s): Nausea/vomiting Medications MedicationSigDispense QuantityRefillsLast FilledStart DateEnd DateStatus aspirin 81 MG EC tablet Take 81 mg by mouth in the morning.05/23/2024ctive metoprolol succinate XL (Toprol-XL) 25 MG 24 hr tablet Take 25 mg by mouth in the morning.ctive nitroglycerin (Nitrostat) 0.[address] 0.4 mg under the tongueActive Active Problems ProblemNoted DateDiagnosed DateSimple chronic sxfuhmbpjt19/12/2025 Overview (09/23/2025): SIMPLE CHRONIC BRONCHITIS Acute ST elevation myocardial infarction (STEMI) of inferior wall09/23/2025OPD (chronic obstructive pulmonary disease)09/23/2025Dog bite09/23/2025Drug-induced kuervotw85/12/6468Zkmshgqtbsbe47/12/2025radycardia, nyfwdqxjmtr25/22/2025MI 26.0-26.9,adult04/03/2024SHD (arteriosclerotic heart disease)12/28/2023urrent kwfelb5312/28/2023History of ST elevation myocardial infarction (STEMI)12/28/2023 Mixed qsqszgqrxsocsq00/16/2024Statin ylejzwspqys48/16/2024Status post insertion of drug eluting coronary artery stent12/28/2023 Encounters DateTypeDepartmentCare JvckBarseggsdxf36/18/2025Telephone [facility] [place] [facility] [address] [facility] [address] [place] [address] Mayte Pulido MD USfrom Last 3 Months Immunizations ImmunizationAdministration DatesNext DuePneumococcal Polysaccharide PPSV23 09/03/2020 Family History Medical HistoryRelationNameCommentsCancerFatherLeukemiaMotherRelationNameStatus CommentsFatherDeceasedMotherDeceased Social History Tobacco UseTypesPacks/DayYears UsedDateSmoking Tobacco: Every DayCigarettes Smokeless Tobacco: Never Tobacco Cessation:Ready to Q uit: Not Asked; Counseling Given: Not Answered Alcohol UseStandard Drinks/WeekCommentsYes0 (1 standard drink = 0.6 oz pure alcohol)occSex and Gender InformationValueDate RecordedSex Assigned at BirthNot on fileLegal KdoNeuw8201/24/2023 7:14 PM EDTGender IdentityNot on fileSexual OrientationNot on file Last Filed Vital Signs Vital SignReadingTime TakenCommentsBlood Kfkodcmd762/68006/02/2025 8:17 AM EDT Txtce3464/22/2025 8:17 AM EDTTemperature--Respiratory Rate--Oxygen Saturation-- Inhaled Oxygen Concentration--Ycmnlo43 kg (172 lb)06/02/2025 8:17 AM EDTHeight 172.7 cm (5' 8 )06/02/2025 8:17 AM EDTBody Mass Index26.1507 8:17 AM EDT Plan of Treatment DateTypeDepartmentCare Team (Latest Contact Info)Dlfbvkmhcps43/18/2025 10:30 AM ESTOffice Visit [facility] [place] [facility] [address] [facility] [address] [place] [address] Mayte Pulido MD [address] [facility] [address] [place] [address] Insurance Care Teams Team MemberRelationshipSpecialtyStart DateEnd Dario Barrientos MD [address] [place] [phone] PCP - GeneralFamily Medicine05/04/25
--- NOTE | 2025-09-24 09:28 | US_ITS ---
The [address] [address] Patient Name: NELI CEDILLO MRN: [id number] date: 1955 Sex: M Assigned Patient Location: US Current Patient Location: US Accession/Order Number: [id number] Exam Date: 09/24/2025 09:30 Report Date: 09/24/2025 10:34 At the request of: LEONARDO YOON MD Procedure: US soft tissue head and neck ULTRASOUND SOFT TISSUE NECK CLINICAL DATA: Bilateral parotid nodules COMPARISON: CT 05/25/2025 and carotid ultrasound 04/10/2025 Real-time ultrasound evaluation of the parotid glands was performed. On the right, within the inferior aspect of the gland, there is a hypoechoic nodular area measuring 22 x 7 x 7 mm. Is close proximity, there is another hypoechoic nodule measuring 6 x 3 x 7 mm within the subcutaneous fat. On the left, within the lower aspect of the parotid gland, there is redemonstration of a hypoechoic nodular area measuring 10 x 8 x 9 mm. This correlates with the nodule seen on the comparison carotid ultrasound and CT. It has not significant changed when measured in a comparable manner. Within the subcutaneous fat a couple centimeters inferior to the left parotid gland is a hypoechoic nodule measuring 6 x 2 x 5 mm. This is also unchanged. US/US soft tissue head and neck IMPRESSION: BILATERAL INTRAPAROTID AND SUBCUTANEOUS NODULARITY, DESCRIBED. THERE IS NO INTERVAL CHANGE ON THE LEFT. THE FINDINGS COULD REPRESENT LYMPH NODES. CONTINUED ULTRASOUND FOLLOW-UP COULD BE PERFORMED TO ASSESS STABILITY. IF CLINICALLY WARRANTED, ULTRASOUND-GUIDED BIOPSY MIGHT ALSO BE CONSIDERED. Impression dictated by: Samantha Fontana M.D. 09/24/2025 10:34 AM Dictation Location: [place] [address] Electronically authenticated by: [id number] Y Date: 09/24/2025 10:34
== END 2025-09-24 09:20 | disposition home or self-care (01) ==
LOC: US 09:20
PROVIDERS: PCP Family Medicine; Visit Provider Otolaryngology
DX: K11.8 Other diseases of salivary glands (principal)
CPT/HCPCS: 76536